=== PATIENT | male | born 1955 | race Caucasian/White ===

== ENCOUNTER 2017-07-27 20:03 | Inpatient (IN) ==
[2017-07-27 21:41] LABS: Basophils % 0.2 %; Eosinophils # 0.1 K/mcL (0.0-0.6); Eosinophils % 1.1 %; Hematocrit 35.8 % (37.5-50.1); Hemoglobin 12.5 g/dL (12.9-16.9); Immature Granulocytes % 0.8 % (0-4); Lymphocytes # 1.1 K/mcL (0.6-4.6); Lymphocytes % 20.2 %; Mean Corpuscular HGB Conc 34.9 g/dL (31.6-35.5); Mean Corpuscular Volume 100.3 fL (83.0-100.0); Mean Platelet Volume 11.1 fL (9.4-12.4); Monocytes # 0.4 K/mcL (0.0-1.3); Monocytes % 7.9 %; Neutrophils # 3.7 K/mcL (1.6-8.9); Red Blood Count 3.57 M/mcL (4.19-5.50); Red Cell Distribution Width 15.4 % (11.5-14.5); Segmented Neutrophils % 69.8 %
[2017-07-27 21:44] LABS: Platelet Count 98 K/mcL (140-400)
[2017-07-27 21:47] LABS: INR 2.1; Prothrombin Time 23.1 Seconds (9.4-12.1)
[2017-07-27 22:03] LABS: BUN/Creatinine Ratio 13 (6-26); Blood Urea Nitrogen 16 mg/dL (8-23); Carbon Dioxide 28 mEq/L (23-29); Chloride 102 mEq/L (98-107); Glucose 188 mg/dL (70-105); Osmolality,Calculated 290 (280-300); Potassium 4.1 mEq/L (3.5-5.1); Sodium 137 mEq/L (136-145); eGFR For African Americans > 60 (> 60); eGFR For Non-African Americans > 60 (> 60)
[2017-07-27 22:05] LABS: Troponin I < 0.03 ng/mL (< 0.04)
[2017-07-27] MEDS ORDERED: *HR* OxyCODONE/APAP 5/325 TABLET PO ONE (22:22)
--- NOTE | 2017-07-27 22:43 | Emergency Department Note ---
Disposition Clinical Impression: Bradycardia Fall Qualifiers: Encounter type: initial encounter Qualified Code(s): W19.XXXA - Unspecified fall, initial encounter Head trauma Qualifiers: Encounter type: initial encounter Qualified Code(s): S09.90XA - Unspecified injury of head, initial encounter Abrasion hip/leg Qualifiers: Encounter type: initial encounter Laterality: right Qualified Code(s): S80.811A - Abrasion, right lower leg, initial encounter Abrasion hand Qualifiers: Encounter type: initial encounter Laterality: right Qualified Code(s): S60.511A - Abrasion of right hand, initial encounter Traumatic hematoma of head Qualifiers: Encounter type: initial encounter Qualified Code(s): S00.93XA - Contusion of unspecified part of head, initial encounter Disposition: Admitted As Inpatient Condition: Fair Referrals: Mari Johnson MD [Primary Care Provider] - Time of Disposition: 22:20 Fall HPI - General Chief Complaint: ED Fall Stated Complaint: fall, head injury Time Seen by Provider: 07/27/17 20:07 Source: patient, EMS Mode of arrival: ambulatory Limitations: no limitations Nursing Notes Reviewed: Yes Vital Signs Reviewed: Yes - History of Present Illness HPI Narrative: 61-year-old male presents emergency Department after a fall at home. Patient states he was carrying groceries into the house when he tripped and fell to the ground striking the front left of his face. Patient states that he did not have lightheadedness or dizziness or near syncopal symptoms during the fall. He states he did not have loss of consciousness after the fall. EMS helped him to the stretcher and brought him to the hospital for further evaluation. Patient has an abrasion to the left side of his face, to his right hand and bilateral lower extremities. Patient is able to range of motion his right lower extremity without significant amount of pain. He does have tenderness to palpation of his right tibia and the right index finger. - Related Data Home Medications Medication Instructions Recorded Confirmed 5-Hydroxytryptophan (5-Htp) [5-Htp] 100 mg PO HS 10/20/15 10/20/15 Aripiprazole [Abilify] 5 mg PO DAILY 10/20/15 07/18/17 Ascorbate Calcium/Bioflavonoid 1 each PO DAILY 10/20/15 07/18/17 [Dianne-C 500 mg Tablet] Aspirin Enteric Coated [Aspirin EC] 81 mg PO DAILY 10/20/15 07/18/17 Atorvastatin Calcium [Lipitor] 20 mg PO DAILY 10/20/15 07/18/17 Cyclobenzaprine [Flexeril] 10 mg PO TID PRN 10/20/15 07/18/17 Doxazosin [Cardura] 8 - 12 mg PO HS 10/20/15 07/18/17 Duloxetine HCl [Cymbalta] 60 mg PO BID 10/20/15 07/18/17 Furosemide [Lasix] 40 mg PO DAILY 10/20/15 07/18/17 Lisinopril [Zestril] 20 mg PO BID 10/20/15 07/18/17 Metoprolol [Lopressor] 100 mg PO BID 10/20/15 07/18/17 Vitamin B Complex 1 each PO DAILY 10/20/15 07/18/17 Warfarin [Coumadin] 5 mg PO MOTUTHSA 10/20/15 07/18/17 Warfarin [Coumadin] 7.5 mg PO SUWEFR 10/20/15 07/18/17 hydroCHLOROthiazide 25 mg PO DAILY 10/20/15 07/18/17 [Hydrochlorothiazide] lamoTRIgine [Lamictal] 200 mg PO BID 10/20/15 07/18/17 Ibuprofen [Motrin Ib] 400 mg PO Q4H PRN 07/18/17 07/18/17 Insulin NPH/REG 70/30 [HumuLIN 50 unit SQ BIDWM 07/18/17 07/18/17 70/30 VIAL] Metformin HCl [Fortamet] 500 mg PO BID 07/18/17 07/18/17 Previous Rx's Medication Instructions Recorded Mag Hydrox/Al Hydrox/Simeth 15 ml PO Q6HR PRN #0 udc 10/26/15 [Maalox] Allergies Allergy/AdvReac Type Severity Reaction Status Date / Time Hydromorphone [From Dilaudid] AdvReac See Verified 07/27/17 22:33 Comments All systems ED: reviewed and negative except as stated. Review of Systems: As Per HPI Fall PMH - Past Medical History Medical history: Reports: atrial fibrillation, diabetes, hyperlipidemia, hypertension, peripheral artery disease, other Surgical history: Reports: appendectomy, arthroscopy (Knee arthroscopic procedure.), orthopedic, other (Plate and screw stabilization of cervical spine. History of laminectomy lumbar spine. Reduction internal fixation of fibula fracture.), other (Left heart catheterization 2004 benign.) Psychiatric history: Reports: no psych history - Social History Smoking Status: Never smoker Alcohol use: Reports: none Drug use: Reports: none Physical Exam General: Alert and in no acute distress Skin: Warm, dry, intact Head: Normocephalic and atraumatic Neck: Supple, trachea midline and no tenderness Cardiovascular: Bradycardia, no murmur, normal perfusion Respiratory: CTAB, no wheezing, cough, or respiratory distress Musculoskeletal: Normal strength, no tenderness, swelling or deformity GI: Soft, nontender, nondistended. Bowel sounds present Neuro: A&O to person, place, time and situation. No focal deficits noted on exam Psychiatric: cooperative and appropriate mood and affect. - General Limitations: no limitations General appearance: alert, in no apparent distress Course Vital Signs Temperature 97.8 F 07/27/17 20:05 Pulse Rate 47 07/27/17 20:05 Respiratory Rate 18 07/27/17 20:05 Blood Pressure 129/71 07/27/17 20:05 O2 Sat by Pulse Oximetry 96 07/27/17 20:05 Temperature 97.8 F 07/27/17 20:05 Pulse Rate 40 07/27/17 21:27 Respiratory Rate 16 07/27/17 21:27 Blood Pressure 139/80 07/27/17 21:27 O2 Sat by Pulse Oximetry 97 07/27/17 21:27 Oxygen Delivery Oxygen Delivery Room Air Fall - [facility] Narrative Medical decision making narrative: Patient had a heart rate that dropped to 31 during a repeat evaluation. He states his usual heart rate is in the low 40s and takes Lopressor 100 mg twice a day and doxazosin. Patient denies chest pain, shortness of breath but does state that he became lightheaded when transferring to the CT table and earlier this morning. He continues to deny shortness of breath or chest pain or near syncopal symptoms prior to the fall. CT of the head was negative for acute fracture or intracranial hemorrhage. Patient does take Coumadin for A. fib as well as factor V Leiden. He also has a history of thrombocytopenia which is being evaluated by Dr. Santiago per the family. INR and platelets are at baseline however after trauma patient is at risk for delayed bleeding. I explained the risks of delayed intracranial hemorrhage and the possible need for future emergent transfer to a hospital with neurosurgery as we do not have that capability. Patient wishes to stay at [facility] for serial examination and repeat head CT. He follows Dr. Doll for cardiology. - Medical Records Medical records reviewed: Yes I reviewed the patient's medical records. - Lab Data Lab results reviewed: Yes I reviewed the patient's lab results. Result diagrams: 07/27/17 21:30 07/27/17 21:30 Lab Results 07/27/17 07/27/17 07/27/17 Range/Units 21:30 21:30 21:30 WBC 5.3 (4.3-11.1) K/mcL RBC 3.57 L (4.19-5.50) M/mcL Hgb 12.5 L (12.9-16.9) g/dL Hct 35.8 L (37.5-50.1) % MCV 100.3 H (83.0-100.0) fL MCH 35.0 H (28.0-33.3) pg MCHC 34.9 (31.6-35.5) g/dL RDW 15.4 H (11.5-14.5) % Plt Count 98 L (140-400) K/mcL MPV 11.1 (9.4-12.4) fL Immature Gran % 0.8 (0-4) % Seg Neutrophils % 69.8 % Lymphocytes % 20.2 % Monocytes % 7.9 % Eosinophils % 1.1 % Basophils % 0.2 % Neutrophils # 3.7 (1.6-8.9) K/mcL Lymphocytes # 1.1 (0.6-4.6) K/mcL Monocytes # 0.4 (0.0-1.3) K/mcL Eosinophils # 0.1 (0.0-0.6) K/mcL Basophils # 0.0 (0.0-0.2) K/mcL PT 23.1 H (9.4-12.1) Seconds INR 2.1 Sodium 137 (136-145) mEq/L Potassium 4.1 (3.5-5.1) mEq/L Chloride 102 (98-107) mEq/L Carbon Dioxide 28 (23-29) mEq/L BUN 16 (8-23) mg/dL Creatinine 1.21 (0.70-1.30) mg/dL Est GFR ( Amer) > 60 (> 60) Est GFR (Non-Af Amer) > 60 (> 60) BUN/Creatinine Ratio 13 (6-26) Glucose 188 H (70-105) mg/dL Calculated Osmolality 290 (280-300) Calcium 9.0 (8.6-10.3) mg/dL Troponin I < 0.03 (< 0.04) ng/mL TSH (0.340-5.600) mcIU/mL 07/27/17 Range/Units 21:30 WBC (4.3-11.1) K/mcL RBC (4.19-5.50) M/mcL Hgb (12.9-16.9) g/dL Hct (37.5-50.1) % MCV (83.0-100.0) fL MCH (28.0-33.3) pg MCHC (31.6-35.5) g/dL RDW (11.5-14.5) % Plt Count (140-400) K/mcL MPV (9.4-12.4) fL Immature Gran % (0-4) % Seg Neutrophils % % Lymphocytes % % Monocytes % % Eosinophils % % Basophils % % Neutrophils # (1.6-8.9) K/mcL Lymphocytes # (0.6-4.6) K/mcL Monocytes # (0.0-1.3) K/mcL Eosinophils # (0.0-0.6) K/mcL Basophils # (0.0-0.2) K/mcL PT (9.4-12.1) Seconds INR Sodium (136-145) mEq/L Potassium (3.5-5.1) mEq/L Chloride (98-107) mEq/L Carbon Dioxide (23-29) mEq/L BUN (8-23) mg/dL Creatinine (0.70-1.30) mg/dL Est GFR ( Amer) (> 60) Est GFR (Non-Af Amer) (> 60) BUN/Creatinine Ratio (6-26) Glucose (70-105) mg/dL Calculated Osmolality (280-300) Calcium (8.6-10.3) mg/dL Troponin I (< 0.04) ng/mL TSH 7.167 H (0.340-5.600) mcIU/mL - Radiology Data Radiology results reviewed: Yes I reviewed the patient's radiology results. - EKG Data EKG attestation: Yes I reviewed and interpreted this EKG. EKG results narrative: Atrial fibrillation with a slow ventricular response of 42 without evidence of STEMI.
[2017-07-28] MEDS ORDERED: *HR* Phytonadione 5 MG TABLET PO STA (01:21)
[2017-07-28] MEDS ORDERED: *HR* Dextrose 50 % in Water (Syg) 50 ML SYRINGE IVP PRN (02:01)
[2017-07-28] MEDS ORDERED: D5% in Water 1,000 ML IVC PRN (02:01)
[2017-07-28] MEDS ORDERED: Dextrose Gel 15 GM/37.5 ML TUBE PO PRN ×2 (02:01)
[2017-07-28] MEDS ORDERED: Naloxone 0.4 MG/ML INJ IVP PRN (02:01)
--- NOTE | 2017-07-28 02:30 | Internal Med History&Physical ---
Date of Encounter: 07/28/17 Time of Encounter: 01:05 Internal Medicine - H&P: HPI Chief complaint: s/p fall; bradycardia Admitted From: Emergency Dept Plans for Post Hospital Care: Home History of present illness: Mr. Hernandez is a 61 year old male who presents to the ER tonight after having sustained a fall and contusion to his forehead earlier this evening. He describes tripping over his screen door and falling on concrete steps earlier this evening around 8 PM and suffering multiple contusions on his legs, arms, and his left forehead and above his left eye. Workup in the ER was negative on imaging, but he was noted to be bradycardic with a heart rate in the 30s and 40s. ER staff contacted me to admit patient, and I was reluctant to admit him because of the head contusion and anticoagulation with an INR of 2.1. I asked Dr. Raines to explain to family that we will did be doing serial neuro checks and repeat CT imaging to evaluate for the possibility of intracranial bleeding. If such is the case, he will need to be transferred emergently to a higher level of care as we have no neurosurgical backup at [place]. Dr. Raines explained this to the patient and family, and they prefer to stay here at [place]. Upon my assessment of the patient, patient has a significant hematoma along his left forehead and left eyelid. He also has multiple abrasions and contusions on his shins and arms with some mild bloody drainage. He denies any loss of consciousness or any syncope or near syncope with this fall. However, he did have bouts of dizziness and lightheadedness earlier in the day. He has history of atrial fibrillation, and, according to his , has been advised to pursue pacemaker placement per his caregiver services home. However, patient has refused to have that performed over the last year. 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 He remains on metoprolol for his atrial fibrillation, but he is quite bradycardic now with a heart rate in the 30s. His states he has been having problems with his heart rate running too fast and too slow over the last year, thus the recommendation for pacemaker. His fall, however, was not precipitated by lightheadedness or dizziness this evening despite having had these symptoms earlier in the day. Patient also has a history of factor V Leiden mutation, but he has never had a deep vein thrombosis or PE. He has had one superficial thrombus in his right arm several years ago. Given that he has never had a DVT or PE, I am going to give him some vitamin K in hopes of minimizing his risk of future bleeding during this hospital stay. Additionally, I asked his nurse to perform every 2 hour neuro checks, and we will repeat a head CT later this morning. I explained to patient and his that if there is any evidence of intracranial bleed, he will need to be transferred emergently to a higher level of care hospital with the neurosurgical backup. As such, there may be a delay in care. They both voiced understanding and a preference to stay here at [place]. Past Med Surg Social Fam HX - Past Medical History Attestation: Yes The following information was validated with the patient. Source: patient, old records reviewed Medical history: atrial fibrillation, diabetes, hyperlipidemia, hypertension, peripheral artery disease Psychiatric history: no psych history - Past Surgical History Surgical History: appendectomy, arthroscopy (Knee arthroscopic procedure.), orthopedic, other (Plate and screw stabilization of cervical spine. History of laminectomy lumbar spine. Reduction internal fixation of fibula fracture.), other (Left heart catheterization 2004 benign.) - Social History Smoking Status: Never smoker Smokeless Tobacco Status: No Alcohol use: none Drug use: none Current living situation: Home, With Family Activity Level: Independent ambulation Recent Out of Country Travel Within the Last 8 Weeks: No - Family History Mother Living Status: Hx Family Cardiac Disorders: Yes (HTN) Internal Medicine - H&P: Meds 5-Hydroxytryptophan (5-Htp) [5-Htp] 100 mg PO HS 10/20/15 [History] Aripiprazole [Abilify] 5 mg PO DAILY 10/20/15 [History] Ascorbate Calcium/Bioflavonoid [Dianne-C 500 mg Tablet] 1 each PO DAILY 10/20/15 [History] Aspirin Enteric Coated [Aspirin EC] 81 mg PO DAILY 10/20/15 [History] Atorvastatin Calcium [Lipitor] 20 mg PO DAILY 10/20/15 [History] Cyclobenzaprine [Flexeril] 10 mg PO TID PRN 10/20/15 [History] Doxazosin [Cardura] 8 - 12 mg PO HS 10/20/15 [History] Duloxetine HCl [Cymbalta] 60 mg PO BID 10/20/15 [History] Furosemide [Lasix] 40 mg PO DAILY 10/20/15 [History] Lisinopril [Zestril] 20 mg PO BID 10/20/15 [History] Metoprolol [Lopressor] 100 mg PO BID 10/20/15 [History] Vitamin B Complex 1 each PO DAILY 10/20/15 [History] Warfarin [Coumadin] 5 mg PO MOTUTHSA 10/20/15 [History] Warfarin [Coumadin] 7.5 mg PO SUWEFR 10/20/15 [History] hydroCHLOROthiazide [Hydrochlorothiazide] 25 mg PO DAILY 10/20/15 [History] lamoTRIgine [Lamictal] 200 mg PO BID 10/20/15 [History] Mag Hydrox/Al Hydrox/Simeth [Maalox] 15 ml PO Q6HR PRN #0 udc 10/26/15 [Rx] Ibuprofen [Motrin Ib] 400 mg PO Q4H PRN 07/18/17 [History] Insulin NPH/REG 70/30 [HumuLIN 70/30 VIAL] 50 unit SQ BIDWM 07/18/17 [History] Metformin HCl [Fortamet] 500 mg PO BID 07/18/17 [History] 3 Allergy/AdvReac Type Severity Reaction Status Date / Time Hydromorphone [From Dilaudid] AdvReac See Verified 07/27/17 22:33 Comments - Constitutional Constitutional: no chills, no fever(s), no night sweats - EENT Eyes: no blurry vision, no change in vision Ears: no ear pain, no tinnitus Nose, mouth and throat: no nasal congestion, no nasal discharge, no sinus pressure, no sore throat - Cardiovascular Cardiovascular ROS IM: irregular heart rhythm, lightheadedness, no chest pain, no dyspnea, no dyspnea on exertion, no edema, no palpitations, no paroxysmal nocturnal dyspnea, no syncope - Respiratory Respiratory: no cough, no dyspnea, no hemoptysis, no dyspnea on exertion, no wheezing, no chest congestion, no excessive phlegm production, no change in phlegm color - Gastrointestinal Gastrointestinal: no abdominal pain, no diarrhea, no hematemesis, no hematochezia, no melena, no nausea, no vomiting - Genitourinary Genitourinary ROS male: no dysuria, no flank pain, no hematuria - Musculoskeletal Musculoskeletal ROS IM: no arthralgias, no back pain - Integumentary Integumentary IM: no rash, no jaundice - Neurological Neurological ROS: dizziness, no abnormal speech, no behavioral changes, no convulsions, no focal weakness, no frequent falls, no headache(s), no weakness - Psychiatric Psychiatric: anxiety, no depression - Endocrine Endocrine IM: no polydipsia, no polyuria - Hematologic/Lymphatic Hematologic/Lymphatic: easy bruising, no lymphadenopathy - Allergic/Immunologic Allergic/Immunologic: no wheezing, no GI upset with certain foods - Constitutional Vitals: Temp Pulse Resp BP Pulse Ox 98.7 F 58 15 121/61 95 07/28/17 00:13 07/28/17 00:13 07/28/17 00:13 07/28/17 00:13 07/28/17 00:13 General appearance: Present: cooperative, mild distress, A&O X 3, pleasant, answers questions appropriately - Head Head exam: Absent: atraumatic Additional comments: prominent hematoma along left forehead and left eyelid -- dressed and wrapped - Expanded Head Exam Head exam expanded: Present: hematoma (left forehead). Absent: Wolf's sign, general tenderness, raccoon eyes - Eye Eye exam: Present: EOMI, normal appearance, PERRL. Absent: scleral icterus Pupils: Present: normal accommodation - ENT ENT exam: Present: mucous membranes dry, normal exam, normal oropharynx - Neck Neck exam general surgery: Present: full ROM, supple. Absent: tenderness, nuchal rigidity, thyromegaly - Respiratory Respiratory exam: Present: CTAB. Absent: chest wall tenderness, rales, respiratory distress, rhonchi, wheezes - Cardiovascular Cardiovascular exam: Present: bradycardia (HR 30's), distant heart sounds, irregular rhythm. Absent: diastolic murmur, JVD, systolic murmur - GI/Abdominal GI/Abdominal exam: Present: normal bowel sounds, soft. Absent: guarding, hepatomegaly, mass, rebound, splenomegaly, tenderness - Extremities Exam Extremities exam: Present: full ROM, normal capillary refill, warm, radial pulses palpable and symmetrical. Absent: calf tenderness, joint swelling, pedal edema - Back Exam Back exam: Present: normal inspection. Absent: CVA tenderness (L), CVA tenderness (R) - Neurological Exam Neurological exam: Present: alert, CN II-XII intact, oriented X3, no focal deficits, strengths equal and symetr throughout. Absent: motor sensory deficit , facial droop, speech deficit - Psychiatric Psychiatric exam: Present: normal affect, normal mood - Skin Skin exam: Present: abrasion (both legs/shins and both arms; forehead) Internal Med - H&P Results - Labs CBC & Chem 7: 07/27/17 21:30 07/27/17 21:30 - EKG Data -: EKG Interpreted by Myself - EKG Data Prior EKG available for review: no EKG comments: 07/28/17 02:47 slow atrial fibrillation with HR 30-40's - Diagnostic Studies CT scan - head Status: image reviewed by me (left ffrontal scalp contusion; no intracranial process) - VTE Reasons for not Prescribing Prophylaxis: Not indicated-Anticoagulated or INR therapeutic - Assessment and plan (1) Traumatic hematoma of head Current Visit: Yes Status: Acute Assessment and plan: 1. Serial neurochecks. 2. Repeat Head CT this morning to re-evaluate for possible intracranial bleed. 3. Long discussion with patient and on the risks of delayed care (transfer ) in the event of intracrainal bleed. I explained to them that we will perform neurochecks and Head CT as above. Additionally, I ordered Vitamin K to reverse Coumadin effect. 4. Patient and voiced understanding and preference to stay at [place]. 5. Wound bandaged and dressed in ER. Qualifiers: Encounter type: initial encounter Qualified Code(s): S00.93XA - Contusion of unspecified part of head, initial encounter (2) Bradycardia Current Visit: Yes Status: Acute Assessment and plan: 1. Stop Metoprolol. 2. Consult cardiology. 3. Monitor heart rhythm on telemetry. 4. BP preserved at this time; may need Dopamine if BP becomes unstable. 5. Patient likely needs pacemaker. (3) IDDM (insulin dependent diabetes mellitus) Current Visit: Yes Status: Chronic Assessment and plan: 1. Continue home basal insulin and SSI. 2. Stop Metformin. 3. Monitor glucose and adjust SSI accordingly. (4) Fall Current Visit: Yes Status: Acute Assessment and plan: 1. Patient will need PT/OT consults once stabilized. 2. Likely exacerbated by bradycardia/atrial fibrillation. 3. Bedrest ordered with bedside commode priveleges with 2 person assist. Qualifiers: Encounter type: initial encounter Qualified Code(s): W19.XXXA - Unspecified fall, initial encounter (5) DVT prophylaxis Current Visit: Yes Status: Acute Assessment and plan: 1. EPCD's. - Time Spent With Patient Total time spent is greater than 50% in coordination of care (as documented) at patient's floor/unit and/or counseling patient:
[2017-07-28 04:33] LABS: Basophils % 0.2 %; Eosinophils % 1.2 %
[2017-07-28 04:35] LABS: Eosinophils # 0.1 K/mcL (0.0-0.6); Hematocrit 34.5 % (37.5-50.1); Immature Granulocytes % 0.6 % (0-4); Immature Platelets 6.7 % (1.1-6.1); Lymphocytes # 1.5 K/mcL (0.6-4.6); Mean Corpuscular HGB Conc 34.8 g/dL (31.6-35.5); Mean Corpuscular Volume 100.6 fL (83.0-100.0); Mean Platelet Volume 11.6 fL (9.4-12.4); Monocytes # 0.4 K/mcL (0.0-1.3); Monocytes % 8.7 %; Nucleated Red Blood Cells 0.6 /100 WBC (0); Red Blood Count 3.43 M/mcL (4.19-5.50); Red Cell Distribution Width 15.3 % (11.5-14.5); Segmented Neutrophils % 60.3 %
[2017-07-28 04:38] LABS: Platelet Count 95 K/mcL (140-400)
[2017-07-28 04:44] LABS: INR 2.1; Prothrombin Time 23.3 Seconds (9.4-12.1)
[2017-07-28 05:00] LABS: Alanine Aminotransferase 13 Units/L (7-52); Albumin 3.5 g/dL (3.5-5.7); Albumin/Globulin Ratio 1.2 (1.1-2.2); Alkaline Phosphatase 82 Units/L (34-104); Aspartate Amino Transferase 20 Units/L (13-39); BUN/Creatinine Ratio 16 (6-26); Bilirubin,Total 0.4 mg/dL (0.3-1.0); Blood Urea Nitrogen 19 mg/dL (8-23); Calcium 8.9 mg/dL (8.6-10.3); Carbon Dioxide 28 mEq/L (23-29); Chloride 101 mEq/L (98-107); Chol/HDL Ratio 2.5 (0-4.9); Cholesterol 138 mg/dL (< 200); Glucose 155 mg/dL (70-105); HDL Cholesterol 55 mg/dL (40-59); LDL Cholesterol,Calculated 66 mg/dL (0-99); Magnesium 1.9 mg/dL (1.6-2.6); Osmolality,Calculated 285 (280-300); Potassium 4.1 mEq/L (3.5-5.1); Sodium 135 mEq/L (136-145); Total Protein 6.5 g/dL (6.4-8.9); Triglycerides 87 mg/dL (< 150); eGFR For African Americans > 60 (> 60); eGFR For Non-African Americans > 60 (> 60)
[2017-07-28 08:02] LABS: Estimated Average Glucose 189 mg/dl; Hemoglobin A1C 8.2 %
[2017-07-28] MEDS: Insulin LISPRO 300 UNITS/3 ML VIAL SQ SCH ×3 (08:31→17:22)
[2017-07-28] MEDS: lamoTRIgine 100 MG TABLET PO SCH ×2 (08:42→22:20)
[2017-07-28] MEDS: Acetaminophen 325 MG TABLET PO PRN ×2 (08:42→22:44)
[2017-07-28] MEDS: Vitamin B Complex/Vit C/Vit E 1 EACH TABLET PO SCH (08:42)
--- NOTE | 2017-07-28 09:33 | Cardiology Consult Note ---
Date of Encounter: 07/28/17 Time of Encounter: 09:33 Assessment and Plan (1) Sick sinus syndrome Current Visit: Yes Status: Acute Previously diagnosed with sick sinus syndrome and PPM was recommended in 2016. Pt opted to wait at that time. Holter monitor 11/23/2015: Average heart rate 59. Atrial fibrillation throughout the recording. Frequent pauses, longest 2.8 seconds occurred during nocturnal hours. Presented with mechanical fall, facial hematoma and contusions and found to have HR 30s-40s. 12 hr tele AVG HR 40, A-Fib, longest pause 4.1 seconds while awake, lowest HR 27. Recent TTE 06/2017 EF 60%. Pt on Lopressor 100mg BID at home. Allow washout. Will order PRN BB if he becomes tachycardic. Pt now agreeable to PPM. Make NPO after midnight tomorrow night and will plan for EP consult and possible PPM insertion on Sunday 07/30. (2) Atrial fibrillation with slow ventricular response Current Visit: Yes Status: Acute As above, diagnosed with sick sinus syndrome. Presented A-Fib slow ventricular response HR 30s-40s. On lopressor 100mg BID, will hold. Anticoagulated on Coumadin. INR was 2.1 on presentation and today. Coumadin currently on hold per primary team, presumably due to his fall and facial hematoma. Pt also has Factor V Leiden mutation. Head CTs have been negative for acute bleeding, but with progressive hematoma. Discussion w patient/family: The assessment and plan as outlined above was discussed with the patient and/or family members who expressed understanding and agreement. All questions were answered. Thank you for involving us in the care of your patient. Please call with any questions. I will discuss all the above with Dr. Diez and make changes as necessary. History of Present Illness Consult date: 07/28/17 Requesting physician: Cj Martínez Consult reason: sick sinus syndrome Chief complaint: fall History of present illness: Mr. Hernandez is a 61 year old male with PMH A-Fib on Coumadin, HTN, HLD, DMII, PAD , Factor V Leiden mutation that presented to ED after having sustained a fall and contusion to his forehead. Reports tripping over his screen door and falling on concrete steps suffering multiple contusions on his legs, arms, and his left forehead and above his left eye. Workup in the ER was negative on imaging. Significant hematoma along his left forehead and left eyelid. He also has multiple abrasions and contusions on his shins and arms. He denies syncope, but reports occasional dizziness/lightheadedness. HR was noted to be bradycardic with a heart rate in the 30s and 40s, A-Fib. Cardiology consulted for further recs. Reviewed prior records, saw Dr. Kaveh Doll in 2016, recommended PPM for SSS at that time, pt willing but never scheduled. HR at bedside currently high 30s, low 40s, on Lopressor 100mg BID at home. Prior CV testing: TTE 06/20/17: LVEF 60%. Definity echo contrast was used. RV is dilated. Function is normal. Mild mitral regurgitation. Mild pulmonary hypertension.The IVC is dilated. Holter monitor 11/23/2015: Average heart rate 59. Atrial fibrillation throughout the recording. Frequent pauses, longest 2.8 seconds occurred during nocturnal hours. Past Med Surg Social Fam HX - Past Medical History Medical history: atrial fibrillation, diabetes, hyperlipidemia, hypertension, peripheral artery disease Psychiatric history: no psych history - Past Surgical History Surgical History: appendectomy, arthroscopy, orthopedic, other, other - Social History Smoking Status: Never smoker Smokeless Tobacco Status: No Alcohol use: none Drug use: none - Family History Mother Living Status: Age at : 82 Cause of : CHF Hx Family Cardiac Disorders: Yes (HTN, CHF) Hx Family Endocrine Disorder: Yes (DM) Medications and Allergies 5-Hydroxytryptophan (5-Htp) [5-Htp] 100 mg PO HS 10/20/15 [History] Aripiprazole [Abilify] 5 mg PO DAILY 10/20/15 [History] Ascorbate Calcium/Bioflavonoid [Dianne-C 500 mg Tablet] 1 each PO DAILY 10/20/15 [History] Aspirin Enteric Coated [Aspirin EC] 81 mg PO DAILY 10/20/15 [History] Atorvastatin Calcium [Lipitor] 20 mg PO DAILY 10/20/15 [History] Cyclobenzaprine [Flexeril] 10 mg PO TID PRN 10/20/15 [History] Doxazosin [Cardura] 8 - 12 mg PO HS 10/20/15 [History] Duloxetine HCl [Cymbalta] 60 mg PO BID 10/20/15 [History] Furosemide [Lasix] 40 mg PO DAILY 10/20/15 [History] Lisinopril [Zestril] 20 mg PO BID 10/20/15 [History] Metoprolol [Lopressor] 100 mg PO BID 10/20/15 [History] Vitamin B Complex 1 each PO DAILY 10/20/15 [History] Warfarin [Coumadin] 5 mg PO MOTUTHSA 10/20/15 [History] Warfarin [Coumadin] 7.5 mg PO SUWEFR 10/20/15 [History] hydroCHLOROthiazide [Hydrochlorothiazide] 25 mg PO DAILY 10/20/15 [History] lamoTRIgine [Lamictal] 200 mg PO BID 10/20/15 [History] Mag Hydrox/Al Hydrox/Simeth [Maalox] 15 ml PO Q6HR PRN #0 udc 10/26/15 [Rx] Ibuprofen [Motrin Ib] 400 mg PO Q4H PRN 07/18/17 [History] Insulin NPH/REG 70/30 [HumuLIN 70/30 VIAL] 50 unit SQ BIDWM 07/18/17 [History] Metformin HCl [Fortamet] 500 mg PO BID 07/18/17 [History] 3 Allergy/AdvReac Type Severity Reaction Status Date / Time Hydromorphone [From Dilaudid] AdvReac See Verified 07/27/17 22:33 Comments All Systems Review: The remainder of the systems were reviewed and are negative - Cardiovascular Cardiovascular: as per HPI, lightheadedness, slow heart rate Physical Examination Vital Signs, Last 4 Hours Temp Pulse Resp BP Pulse Ox 07/28/17 07:38 97.5 F L 45 16 117/79 97 Vital Signs Temp Pulse Resp BP Pulse Ox 07/28/17 07:38 97.5 F L 45 16 117/79 97 07/28/17 04:23 41 13 131/94 93 07/28/17 02:43 16 98 07/28/17 00:13 98.7 F 58 15 121/61 95 07/27/17 23:48 41 17 116/74 96 07/27/17 22:51 40 16 117/67 97 07/27/17 21:27 40 16 139/80 97 07/27/17 20:05 97.8 F 47 18 129/71 96 Intake and Output 07/27/17 07/28/17 07/28/17 23:59 07:59 15:59 Intake Total 480 / 480 Output Total 0 / 0 Balance 0 / 0 480 / 480 Intake: Oral 480 / 480 Output: Urine 0 / 0 Other: Meal Breakfast Percent of Meal Consumed 100% Weight 169.19 kg 169.1 kg Blood Glucose* 106 Patient Weight 07/28/17 23:59 Weight 169.1 kg General: Conversant, No Apparent Distress HEENT: Other (hematoma left forehead and eyelid, contusions) Neck: No JVD, Normal carotid pulses Cardiac: Other (irregularly irregular) Lungs: Normal Breath Sounds, No Wheeze, Rales, Rhonchi Neuro: Alert and responsive, No focal deficits noted Abdomen: Soft, Non-Tender Skin: No rashes noted on visualized skin Musculoskeletal: No Chest Wall Tenderness Extremities: Other (mild LE edema) Results 07/28/17 03:54 07/28/17 03:54 Lab Results 07/28/17 07/28/17 07/28/17 03:54 03:54 03:54 WBC 5.0 Hgb 12.0 L Hct 34.5 L Plt Count 95 L INR 2.1 APTT 36.0 Sodium Potassium Chloride Carbon Dioxide BUN Creatinine Glucose Calcium Magnesium Total Bilirubin AST ALT Alkaline Phosphatase Troponin I < 0.03 07/28/17 03:54 WBC Hgb Hct Plt Count INR APTT Sodium 135 L Potassium 4.1 Chloride 101 Carbon Dioxide 28 BUN 19 Creatinine 1.18 Glucose 155 H Calcium 8.9 Magnesium 1.9 Total Bilirubin 0.4 AST 20 ALT 13 Alkaline Phosphatase 82 Troponin I Short CBC 07/28/17 07/27/17 Range/Units 03:54 21:30 WBC 5.0 5.3 (4.3-11.1) K/mcL Hgb 12.0 L 12.5 L (12.9-16.9) g/dL Hct 34.5 L 35.8 L (37.5-50.1) % Plt Count 95 L 98 L (140-400) K/mcL Neutrophils # 3.0 3.7 (1.6-8.9) K/mcL BMP 07/28/17 07/27/17 Range/Units 03:54 21:30 Sodium 135 L 137 (136-145) mEq/L Potassium 4.1 4.1 (3.5-5.1) mEq/L Chloride 101 102 (98-107) mEq/L Carbon Dioxide 28 28 (23-29) mEq/L BUN 19 16 (8-23) mg/dL Creatinine 1.18 1.21 (0.70-1.30) mg/dL Glucose 155 H 188 H (70-105) mg/dL Calcium 8.9 9.0 (8.6-10.3) mg/dL Cardiac Enzymes 07/28/17 07/27/17 Range/Units 03:54 21:30 Troponin I < 0.03 < 0.03 (< 0.04) ng/mL Liver Function 07/28/17 Range/Units 03:54 Total Bilirubin 0.4 (0.3-1.0) mg/dL AST 20 (13-39) Units/L ALT 13 (7-52) Units/L Alkaline Phosphatase 82 (34-104) Units/L Albumin 3.5 (3.5-5.7) g/dL Impressions Cervical Spine CT 07/27/17 20:39 IMPRESSION: No acute abnormality of the cervical spine. Fixation hardware appears intact. D/ / 07/27/2017 21:54:35 Stanley Saldivar MD / [facility] Interpreting Provider: Stanley Saldivar MD Face CT 07/27/17 20:39 IMPRESSION: No acute traumatic injury of facial bones. Left periorbital and frontal soft tissue contusion. D/ / Uziel Tan MD / Uziel Tan MD Interpreting Provider: Uziel Tan MD Finger X-Ray 07/27/17 20:39 IMPRESSION: No acute osseous abnormality of the right index finger. D/ / Dax Pulido / Dax Pulido Interpreting Provider: Dax Pulido Head CT 07/27/17 20:39 IMPRESSION: No acute intracranial abnormality. Soft tissue contusion/ hematoma of the left frontal scalp and left periorbital soft tissues. D/ / Zeus Cunningham MD / Zeus Cunningham MD Interpreting Provider: Zeus Cunningham MD Tibia/Fibula X-Ray 07/27/17 20:39 IMPRESSION: No acute osseous abnormality. D/ / Neftali Nolen MD / Neftali Nolen MD Interpreting Provider: Neftali Nolen MD Chest X-Ray 07/27/17 21:27 IMPRESSION: 1. No acute cardiopulmonary abnormality. 2. Mild cardiomegaly. D/ / Dax Pulido / Dax Pulido Interpreting Provider: Dax Pulido Head CT 07/28/17 04:30 IMPRESSION: No acute intracranial abnormality. Progressive left frontal scalp hematoma. D/ / Haim Hanna MD / Haim Hanna MD Interpreting Provider: Haim Hanna MD Active Medications Acetaminophen (Tylenol) 650 mg PO Q6H PRN PRN Reason: Mild Pain/Fever Stop: 01/27/18 02:02 Last Admin: 07/28/17 08:42 Dose: 650 mg Al Hydrox/Mg Hydrox/Simethicone (Maalox) 15 ml PO Q6HR PRN; Protocol PRN Reason: Dyspepsia Stop: 01/27/18 02:11 Atorvastatin Calcium (Lipitor) 20 mg PO DAILY TRINITY Stop: 01/27/18 09:01 Last Admin: 07/28/17 08:41 Dose: 20 mg Dextrose/Water (Dextrose 50% (Syg)) 25 ml IVP AD PRN PRN Reason: Hypoglycemia Stop: 01/27/18 02:02 Glucagon (Glucagen) 1 mg IM ONCE PRN PRN Reason: Hypoglycemia Stop: 01/27/18 02:02 Glucose (Gluctose) 15 gm PO ONCE PRN PRN Reason: Hypoglycemia Stop: 01/27/18 02:02 Glucose (Gluctose) 30 gm PO ONCE PRN PRN Reason: Hypoglycemia Stop: 01/27/18 02:02 Dextrose (Dextrose 5%) 1,000 mls @ 100 mls/hr IVC .Q10H PRN PRN Reason: HYPOGLYCEMIA Stop: 01/27/18 02:02 Insulin Human Lispro (Humalog) 0 units SQ TIDAC TRINITY PRN Reason: Protocol Stop: 01/27/18 07:31 Last Admin: 07/28/17 08:31 Dose: Not Given Lamotrigine (Lamictal) 200 mg PO BID TRINITY Stop: 01/27/18 09:01 Last Admin: 07/28/17 08:42 Dose: 200 mg Naloxone HCl (Narcan) 0.4 mg IVP Q2MIN PRN PRN Reason: SEE COMMENTS Stop: 01/27/18 02:02 Non-Formulary Medication (Insulin Nph/Reg 70/30) 50 unit SQ BIDWM TRINITY Stop: 01/27/18 08:01 Vitamin B Complex/Vit C/Vit E (Stresstab) 1 each PO DAILY TRINITY Stop: 01/27/18 09:01 Last Admin: 07/28/17 08:42 Dose: 1 each - Imaging and Cardiology Echo: report reviewed Holter: report reviewed - EKG Interpretation EKG results cardiology: personally reviewed (A-Fib, slow ventricular response HR 42), other (12 hr tele AVG HR 40, A-Fib. Longest pause 4.1 seconds. Lowest HR 27.) Consult Discharge Plan - Plan Referrals: Mari Johnson MD [Primary Care Provider] -
[2017-07-28 10:06] LABS: Basophils % 0.2 %; Immature Granulocytes % 0.4 % (0-4); Red Cell Distribution Width 15.4 % (11.5-14.5)
[2017-07-28 10:07] LABS: Hematocrit 34.7 % (37.5-50.1); Hemoglobin 12.2 g/dL (12.9-16.9); Immature Platelets 5.8 % (1.1-6.1); Lymphocytes % 29.5 %; Mean Corpuscular HGB Conc 35.2 g/dL (31.6-35.5); Mean Corpuscular Hemoglobin 35.4 pg (28.0-33.3); Mean Corpuscular Volume 100.6 fL (83.0-100.0); Mean Platelet Volume 10.6 fL (9.4-12.4); Red Blood Count 3.45 M/mcL (4.19-5.50); Segmented Neutrophils % 58.2 %
[2017-07-28 10:08] LABS: Eosinophils # 0.1 K/mcL (0.0-0.6); Eosinophils % 1.4 %; Lymphocytes # 1.5 K/mcL (0.6-4.6); Monocytes # 0.5 K/mcL (0.0-1.3); Monocytes % 10.3 %; Neutrophils # 2.9 K/mcL (1.6-8.9); Platelet Count 95 K/mcL (140-400)
[2017-07-28] MEDS ORDERED: 0.9 % Sodium Chloride 250 ML ONE (11:02)
[2017-07-28] MEDS: Mag Hydrox/Al Hydrox/Simeth 30 ML UDC PO PRN (12:06)
--- NOTE | 2017-07-28 12:09 | Internal Med Progress Note ---
<Genaro Levy - Last Filed: 07/28/17 13:07> Date of Encounter: 07/28/17 Time of Encounter: 12:00 - Assessment and plan (1) Fall Current Visit: Yes Status: Acute Assessment and plan: Likely exacerbated by bradycardia/atrial fibrillation Significant hematoma over left eye Initial head CT and repeat head CT are negative for intracranial bleed but do show progression of hematoma No bony abnormalities observed Patient anticoagulated with Coumadin prior to fall, likely contributory to hematoma Reverse INR with vitamin K and FFP Bedrest ordered with bedside commode priveleges with 2 person assist Patient will need PT/OT consults once stabilized Serial neurochecks, if worsening mental status observed, obtain head CT If intracranial hemorrhage seen will need immediate transfer Qualifiers: Encounter type: initial encounter Qualified Code(s): W19.XXXA - Unspecified fall, initial encounter (2) Traumatic hematoma of head Current Visit: Yes Status: Acute Assessment and plan: Plan as above Qualifiers: Encounter type: initial encounter Qualified Code(s): S00.93XA - Contusion of unspecified part of head, initial encounter (3) IDDM (insulin dependent diabetes mellitus) Current Visit: Yes Status: Chronic Assessment and plan: Blood sugars controlled Continue home basal insulin and SSI Stop Metformin Monitor glucose and adjust SSI accordingly (4) DVT prophylaxis Current Visit: Yes Status: Acute Assessment and plan: EPCD's. (5) Sick sinus syndrome Current Visit: Yes Status: Acute Assessment and plan: Patient has history of bradycardia. He was previously evaluated by cardiology and a pacemaker was recommended in 2016 for sick sinus syndrome (which he declined at that time) Bradycardia with pause are likely etiology of his fall Stop Metoprolol Consult cardiology: plan for pacemaker placement on Sunday Monitor heart rhythm on telemetry - Time Spent With Patient Total time spent is greater than 50% in coordination of care (as documented) at patient's floor/unit and/or counseling patient: - Subjective Interval history: Patient reports doing well. He denies having any significant changes in mental status, his is at bedside and agrees. His states that there has been a slight increase in the puffiness around his eye, but not significantly so. He reports having a mild headache, but is not concerned by it. He denies having any feelings of palpitations, chest pain, shortness of breath, or nausea. - Constitutional Vitals: Temp Pulse Resp BP Pulse Ox 97.8 F 50 16 145/69 93 07/28/17 11:51 07/28/17 11:51 07/28/17 11:51 07/28/17 11:51 07/28/17 11:51 General appearance: Present: cooperative, A&O X 3, pleasant, no acute distress, answers questions appropriately Exam: General: Cooperative, pleasant, no acute distress, alert and oriented 3, answers questions appropriately HEENT: Normocephalic, bandage in place over left eye, left eye swollen closed, hematoma on left forehead and under left eye, mild tenderness in muscles in posterior cervical region, neck supple, trachea midline, oral mucosa moist, no orophargeal erythema or exudates Respiratory: No accessory muscle usage, clear to auscultation bilaterally, no wheezes/rhonchi/rales appreciated Cardiovascular: Regular rate and rhythm, S1 and S2 present, no murmurs/rubs/ gallops/clicks appreciated GI/abdominal: Nondistended, nontender, soft, normal bowel sounds, no peritoneal signs Extremities: No calf tenderness, abrasions on right and left lower extremities, abrasions on left UE, 1-2+ pedal edema appreciated, warm, lower extremity pulses palpable and symmetrical Neurological: Alert and oriented 3, no facial droop, no focal deficits Skin: Dry, intact, normal color Internal Medicine: Result - Labs CBC & Chem 7: 07/28/17 09:56 07/28/17 03:54 Labs: Short CBC 07/28/17 07/28/17 Range/Units 03:54 09:56 WBC 5.0 4.9 (4.3-11.1) K/mcL Hgb 12.0 L 12.2 L (12.9-16.9) g/dL Hct 34.5 L 34.7 L (37.5-50.1) % Plt Count 95 L 95 L (140-400) K/mcL Neutrophils # 3.0 2.9 (1.6-8.9) K/mcL BMP 07/28/17 03:54 Sodium 135 L Potassium 4.1 Chloride 101 Carbon Dioxide 28 BUN 19 Creatinine 1.18 Glucose 155 H Calcium 8.9 Cardiac Enzymes 07/28/17 07/28/17 Range/Units 03:54 09:56 Troponin I < 0.03 < 0.03 (< 0.04) ng/mL Liver Function 07/28/17 Range/Units 03:54 Total Bilirubin 0.4 (0.3-1.0) mg/dL AST 20 (13-39) Units/L ALT 13 (7-52) Units/L Alkaline Phosphatase 82 (34-104) Units/L Albumin 3.5 (3.5-5.7) g/dL - ABG Interpretation ABG results: PT/INR, D-dimer PT 23.3 Seconds (9.4-12.1) H 07/28/17 03:54 - Impressions Impressions Head CT 07/28/17 04:30 IMPRESSION: No acute intracranial abnormality. Progressive left frontal scalp hematoma. D/ / Haim Hanna MD / Haim Hanna MD Interpreting Provider: Haim Hanna MD - VTE Reasons for not Prescribing Prophylaxis: Not indicated-Anticoagulated or INR therapeutic Consult Discharge Plan - Plan Referrals: Mari Johnson MD [Primary Care Provider] - <Gerry Claire T - Last Filed: 07/28/17 14:10> Date of Encounter: 07/28/17 - Assessment and plan (1) Fall Current Visit: Yes Status: Acute Qualifiers: Encounter type: initial encounter Qualified Code(s): W19.XXXA - Unspecified fall, initial encounter (2) Traumatic hematoma of head Current Visit: Yes Status: Acute Qualifiers: Encounter type: initial encounter Qualified Code(s): S00.93XA - Contusion of unspecified part of head, initial encounter (3) IDDM (insulin dependent diabetes mellitus) Current Visit: Yes Status: Chronic (4) DVT prophylaxis Current Visit: Yes Status: Acute (5) Sick sinus syndrome Current Visit: Yes Status: Acute - Time Spent With Patient Total time spent is greater than 50% in coordination of care (as documented) at patient's floor/unit and/or counseling patient: - Constitutional Vitals: Temp Pulse Resp BP Pulse Ox 97.6 F 45 16 167/73 96 07/28/17 13:52 07/28/17 13:52 07/28/17 13:52 07/28/17 13:52 07/28/17 13:52 Internal Medicine: Result - Labs CBC & Chem 7: 07/28/17 09:56 07/28/17 03:54 Labs: Short CBC 07/28/17 07/28/17 Range/Units 03:54 09:56 WBC 5.0 4.9 (4.3-11.1) K/mcL Hgb 12.0 L 12.2 L (12.9-16.9) g/dL Hct 34.5 L 34.7 L (37.5-50.1) % Plt Count 95 L 95 L (140-400) K/mcL Neutrophils # 3.0 2.9 (1.6-8.9) K/mcL BMP 07/28/17 03:54 Sodium 135 L Potassium 4.1 Chloride 101 Carbon Dioxide 28 BUN 19 Creatinine 1.18 Glucose 155 H Calcium 8.9 Cardiac Enzymes 07/28/17 07/28/17 Range/Units 03:54 09:56 Troponin I < 0.03 < 0.03 (< 0.04) ng/mL Liver Function 07/28/17 Range/Units 03:54 Total Bilirubin 0.4 (0.3-1.0) mg/dL AST 20 (13-39) Units/L ALT 13 (7-52) Units/L Alkaline Phosphatase 82 (34-104) Units/L Albumin 3.5 (3.5-5.7) g/dL - ABG Interpretation ABG results: PT/INR, D-dimer PT 23.3 Seconds (9.4-12.1) H 07/28/17 03:54 - Impressions Impressions Head CT 07/28/17 04:30 IMPRESSION: No acute intracranial abnormality. Progressive left frontal scalp hematoma. D/ / Haim Hanna MD / Haim Hanna MD Interpreting Provider: Haim Hanna MD - Attending Attestation I examined this patient and my medical decision-making was reviewed with the Resident Physician on 07/28/17. I agree with the documented findings, disposition and treatment plan as described except to the extent set forth below. No globe rupure, cornea is white. Fall with expanding scalp hematoma by CT. Bradycardic, Cardio is following. Factor V leiden. INR is therapeutic. Reverse INR for now, monitor HB q6h. Onc eval due to recurrent falls while on Coumadin. PTOT eval. Hold BB, continue other home meds.
[2017-07-28 15:50] LABS: Basophils % 0.2 %; Hemoglobin 11.9 g/dL (12.9-16.9)
[2017-07-28 15:52] LABS: Eosinophils # 0.1 K/mcL (0.0-0.6); Eosinophils % 1.4 %; Hematocrit 34.1 % (37.5-50.1); Immature Granulocytes % 0.2 % (0-4); Immature Platelets 5.9 % (1.1-6.1); Lymphocytes # 1.3 K/mcL (0.6-4.6); Lymphocytes % 31.6 %; Mean Corpuscular HGB Conc 34.9 g/dL (31.6-35.5); Mean Corpuscular Hemoglobin 34.9 pg (28.0-33.3); Mean Platelet Volume 10.7 fL (9.4-12.4); Monocytes # 0.4 K/mcL (0.0-1.3); Monocytes % 9.1 %; Neutrophils # 2.4 K/mcL (1.6-8.9); Red Blood Count 3.41 M/mcL (4.19-5.50); Red Cell Distribution Width 15.1 % (11.5-14.5); Segmented Neutrophils % 57.5 %
[2017-07-28 15:56] LABS: Platelet Count 91 K/mcL (140-400)
[2017-07-28 21:18] LABS: Basophils % 0.2 %; Eosinophils # 0.1 K/mcL (0.0-0.6); Eosinophils % 1.4 %; Hematocrit 35.8 % (37.5-50.1); Hemoglobin 12.5 g/dL (12.9-16.9); Immature Granulocytes % 0.5 % (0-4); Lymphocytes # 1.4 K/mcL (0.6-4.6); Lymphocytes % 33.3 %; Mean Corpuscular HGB Conc 34.9 g/dL (31.6-35.5); Mean Corpuscular Hemoglobin 34.8 pg (28.0-33.3); Mean Corpuscular Volume 99.7 fL (83.0-100.0); Mean Platelet Volume 10.5 fL (9.4-12.4); Monocytes # 0.4 K/mcL (0.0-1.3); Monocytes % 10.4 %; Neutrophils # 2.3 K/mcL (1.6-8.9); Red Blood Count 3.59 M/mcL (4.19-5.50); Red Cell Distribution Width 15.3 % (11.5-14.5); Segmented Neutrophils % 54.2 %
[2017-07-28 21:20] LABS: Platelet Count 90 K/mcL (140-400)
[2017-07-28 21:24] LABS: INR 1.7; Prothrombin Time 18.3 Seconds (9.4-12.1)
[2017-07-28] MEDS: Insulin NPH/REG 70/30 300 UNIT/3 ML VIAL SQ SCH ×2 (22:21→22:47)
[2017-07-29 04:05] LABS: Basophils % 0.2 %; Immature Granulocytes % 0.2 % (0-4)
[2017-07-29 04:11] LABS: Eosinophils # 0.1 K/mcL (0.0-0.6); Hematocrit 36.9 % (37.5-50.1); Hemoglobin 12.5 g/dL (12.9-16.9); INR 1.6; Immature Platelets 6.2 % (1.1-6.1); Lymphocytes # 1.6 K/mcL (0.6-4.6); Lymphocytes % 36.7 %; Mean Corpuscular HGB Conc 33.9 g/dL (31.6-35.5); Mean Corpuscular Volume 100.3 fL (83.0-100.0); Mean Platelet Volume 11.1 fL (9.4-12.4); Monocytes # 0.4 K/mcL (0.0-1.3); Neutrophils # 2.2 K/mcL (1.6-8.9); Platelet Count 100 K/mcL (140-400); Prothrombin Time 17.4 Seconds (9.4-12.1); Red Blood Count 3.68 M/mcL (4.19-5.50); Red Cell Distribution Width 15.2 % (11.5-14.5); Segmented Neutrophils % 50.9 %
[2017-07-29 05:07] LABS: BUN/Creatinine Ratio 14 (6-26); Blood Urea Nitrogen 14 mg/dL (8-23); Calcium 9.2 mg/dL (8.6-10.3); Carbon Dioxide 31 mEq/L (23-29); Chloride 103 mEq/L (98-107); Glucose 126 mg/dL (70-105); Osmolality,Calculated 288 (280-300); Potassium 3.9 mEq/L (3.5-5.1); Sodium 138 mEq/L (136-145); eGFR For African Americans > 60 (> 60); eGFR For Non-African Americans > 60 (> 60)
[2017-07-29] MEDS: Insulin LISPRO 300 UNITS/3 ML VIAL SQ SCH ×3 (07:35→17:25)
[2017-07-29] MEDS ORDERED: *HR* Heparin 5,000 UNIT/ML VIAL IVP ONE (08:47)
[2017-07-29] MEDS ORDERED: *HR* Heparin 5,000 UNIT/ML VIAL IVP PRN ×2 (08:47)
[2017-07-29] MEDS ORDERED: Heparin 25,000 UNIT/500 ML D5W 25,000 UNIT/500 ML BAG IVC SCH (09:00)
[2017-07-29] MEDS: Acetaminophen 325 MG TABLET PO PRN ×2 (09:24→21:49)
[2017-07-29] MEDS: Vitamin B Complex/Vit C/Vit E 1 EACH TABLET PO SCH (09:24)
[2017-07-29] MEDS: lamoTRIgine 100 MG TABLET PO SCH ×2 (09:24→21:51)
--- NOTE | 2017-07-29 10:20 | Cardiology Progress Note ---
Date of Encounter: 07/29/17 Time of Encounter: 10:20 Assessment and Plan (1) Tachy-elliot syndrome Current Visit: Yes Status: Acute EP consult tomorrow, plan on PPM in morning Pt not to eat after midnight. (2) Chronic anticoagulation Current Visit: No Status: Chronic Continue INR 2-3 for atrial fibrillation (3) Fall Current Visit: Yes Status: Acute Likely 2/2 tachybrady syndrome Qualifiers: Encounter type: initial encounter Qualified Code(s): W19.XXXA - Unspecified fall, initial encounter Discussion w patient/family: The assessment and plan as outlined above was discussed with the patient and/or family members who expressed understanding and agreement. All questions were answered. Thank you for involving us in the care of your patient. Please call with any questions. Subjective Principal diagnosis: chest pain Interval history: He had dressing on head reinforced today, otherwise no symptoms. No chest pain or palpitations. Objective Vital Signs, Last 4 Hours Temp Pulse Resp BP Pulse Ox 07/29/17 07:39 96 07/29/17 06:59 98.3 F 65 16 148/86 96 General: Conversant HEENT: Other (left frontal ecchymosis) Neck: No JVD Cardiac: Other (irr irr) Lungs: Normal Breath Sounds Neuro: Alert and responsive Abdomen: Soft Skin: No rashes noted on visualized skin Musculoskeletal: No Chest Wall Tenderness Extremities: Other (trace edema) Results 07/29/17 03:27 07/29/17 03:27 Lab Results 07/28/17 07/28/17 07/28/17 09:56 15:39 21:06 WBC 4.2 L 4.2 L Hgb 11.9 L 12.5 L Hct 34.1 L 35.8 L Plt Count 91 L 90 L INR Sodium Potassium Chloride Carbon Dioxide BUN Creatinine Glucose Calcium Troponin I < 0.03 07/28/17 07/29/17 07/29/17 21:06 03:27 03:27 WBC 4.4 Hgb 12.5 L Hct 36.9 L Plt Count 100 L INR 1.7 1.6 Sodium Potassium Chloride Carbon Dioxide BUN Creatinine Glucose Calcium Troponin I 07/29/17 03:27 WBC Hgb Hct Plt Count INR Sodium 138 Potassium 3.9 Chloride 103 Carbon Dioxide 31 H BUN 14 Creatinine 0.98 Glucose 126 H Calcium 9.2 Troponin I - VTE Reasons for not Prescribing Prophylaxis: Not indicated-Anticoagulated or INR therapeutic Documentation of Mechanical Device: Intermittent pneumatic compression device Consult Discharge Plan - Plan Referrals: Mari Johnson MD [Primary Care Provider] -
--- NOTE | 2017-07-29 10:30 | Internal Med Progress Note ---
<Genaro Levy - Last Filed: 07/29/17 10:47> Date of Encounter: 07/29/17 Time of Encounter: 10:00 - Assessment and plan (1) Sick sinus syndrome Current Visit: Yes Status: Acute Assessment and plan: Patient has history of bradycardia and SSS He was previously evaluated by cardiology and a pacemaker was recommended in 2016 for sick sinus syndrome (which he declined at that time) Bradycardia with pause are likely etiology of his fall Stop Metoprolol Consult cardiology: plan for pacemaker placement on Sunday Monitor heart rhythm on telemetry (2) Fall Current Visit: Yes Status: Acute Assessment and plan: Likely exacerbated by bradycardia/atrial fibrillation Significant hematoma over left eye Initial head CT and repeat head CT are negative for intracranial bleed but do show progression of hematoma No bony abnormalities observed Patient anticoagulated with Coumadin prior to fall, likely contributory to hematoma Reversed INR with vitamin K and FFP yesterday Patient will need PT/OT consults once stabilized Continue to monitor neuro status Qualifiers: Encounter type: initial encounter Qualified Code(s): W19.XXXA - Unspecified fall, initial encounter (3) Traumatic hematoma of head Current Visit: Yes Status: Acute Assessment and plan: Plan as above Qualifiers: Encounter type: initial encounter Qualified Code(s): S00.93XA - Contusion of unspecified part of head, initial encounter (4) IDDM (insulin dependent diabetes mellitus) Current Visit: Yes Status: Chronic Assessment and plan: Blood sugars controlled Patient takes insulin 70/30 units twice a day at home We will hold patient's home insulin Continue home basal insulin and SSI We will add 10 units of Levemir twice a day Stop Metformin Monitor glucose and adjust SSI accordingly (5) DVT prophylaxis Current Visit: Yes Status: Acute Assessment and plan: EPCD's Patient previously anticoagulated for atrial fibrillation, this was reversed due to progressive nature of patient hematoma Possible reinstitution of anticoagulation considered (6) Atrial fibrillation Current Visit: Yes Status: Acute Assessment and plan: History of atrial fibrillation On Coumadin with therapeutic INR at presentation Worsening hematoma seen in serial CT scans Coumadin reversed with vitamin K and fresh frozen plasma Hemoglobin has remained stable Both the start anticoagulation with heparin drip We will give dose of Coumadin today, likely INR will not go in tomorrow given previous administration of vitamin K and FFP Qualifiers: Atrial fibrillation type: unspecified Qualified Code(s): I48.91 - Unspecified atrial fibrillation - Time Spent With Patient Total time spent is greater than 50% in coordination of care (as documented) at patient's floor/unit and/or counseling patient: - Subjective Interval history: Patient reports he is doing well this morning. He denies any significant changes in his mental state or any episodes of confusion. He denies any increasing swelling, though he admits he cannot see his forehead. He denies any headache or changes in his vision. Denies chest pain or shortness of breath. - Constitutional Vitals: Temp Pulse Resp BP Pulse Ox 98.3 F 65 16 148/86 96 07/29/17 06:59 07/29/17 06:59 07/29/17 06:59 07/29/17 06:59 07/29/17 07:39 General appearance: Present: cooperative, A&O X 3, pleasant, no acute distress, answers questions appropriately Exam: General: Cooperative, pleasant, no acute distress, alert and oriented 3, answers questions appropriately HEENT: Normocephalic, bandage in place over left eye, left eye swollen closed, hematoma on left forehead and under left eye, laceration above left eyebrow, mild tenderness in muscles in posterior cervical region, neck supple, trachea midline, oral mucosa moist, no orophargeal erythema or exudates Respiratory: No accessory muscle usage, clear to auscultation bilaterally, no wheezes/rhonchi/rales appreciated Cardiovascular: Regular rate and rhythm, S1 and S2 present, no murmurs/rubs/ gallops/clicks appreciated GI/abdominal: Nondistended, nontender, soft, normal bowel sounds, no peritoneal signs Extremities: No calf tenderness, abrasions on right and left lower extremities, abrasions on left UE, trace pedal edema appreciated, warm, lower extremity pulses palpable and symmetrical Neurological: Alert and oriented 3, no facial droop, no focal deficits Skin: Dry, intact, normal color Internal Medicine: Result - Labs CBC & Chem 7: 07/29/17 03:27 07/29/17 03:27 Labs: Short CBC 07/28/17 07/28/17 07/29/17 Range/Units 15:39 21:06 03:27 WBC 4.2 L 4.2 L 4.4 (4.3-11.1) K/mcL Hgb 11.9 L 12.5 L 12.5 L (12.9-16.9) g/dL Hct 34.1 L 35.8 L 36.9 L (37.5-50.1) % Plt Count 91 L 90 L 100 L (140-400) K/mcL Neutrophils # 2.4 2.3 2.2 (1.6-8.9) K/mcL BMP 07/29/17 03:27 Sodium 138 Potassium 3.9 Chloride 103 Carbon Dioxide 31 H BUN 14 Creatinine 0.98 Glucose 126 H Calcium 9.2 - ABG Interpretation ABG results: PT/INR, D-dimer PT 17.4 Seconds (9.4-12.1) H 07/29/17 03:27 - VTE Reasons for not Prescribing Prophylaxis: Not indicated-Anticoagulated or INR therapeutic Documentation of Mechanical Device: Intermittent pneumatic compression device Consult Discharge Plan - Plan Referrals: Mari Johnson MD [Primary Care Provider] - <Gerry Claire - Last Filed: 07/29/17 13:32> Date of Encounter: 07/29/17 - Assessment and plan (1) Fall Current Visit: Yes Status: Acute Qualifiers: Encounter type: initial encounter Qualified Code(s): W19.XXXA - Unspecified fall, initial encounter (2) Traumatic hematoma of head Current Visit: Yes Status: Acute Qualifiers: Encounter type: initial encounter Qualified Code(s): S00.93XA - Contusion of unspecified part of head, initial encounter (3) IDDM (insulin dependent diabetes mellitus) Current Visit: Yes Status: Chronic (4) DVT prophylaxis Current Visit: Yes Status: Acute (5) Sick sinus syndrome Current Visit: Yes Status: Acute (6) Atrial fibrillation Current Visit: Yes Status: Acute Qualifiers: Atrial fibrillation type: unspecified Qualified Code(s): I48.91 - Unspecified atrial fibrillation - Time Spent With Patient Total time spent is greater than 50% in coordination of care (as documented) at patient's floor/unit and/or counseling patient: - Constitutional Vitals: Temp Pulse Resp BP Pulse Ox 98.3 F 65 16 148/86 96 07/29/17 06:59 07/29/17 06:59 07/29/17 06:59 07/29/17 06:59 07/29/17 07:39 Internal Medicine: Result - Labs CBC & Chem 7: 07/29/17 03:27 07/29/17 03:27 Labs: Short CBC 07/28/17 07/28/17 07/29/17 Range/Units 15:39 21:06 03:27 WBC 4.2 L 4.2 L 4.4 (4.3-11.1) K/mcL Hgb 11.9 L 12.5 L 12.5 L (12.9-16.9) g/dL Hct 34.1 L 35.8 L 36.9 L (37.5-50.1) % Plt Count 91 L 90 L 100 L (140-400) K/mcL Neutrophils # 2.4 2.3 2.2 (1.6-8.9) K/mcL BMP 07/29/17 03:27 Sodium 138 Potassium 3.9 Chloride 103 Carbon Dioxide 31 H BUN 14 Creatinine 0.98 Glucose 126 H Calcium 9.2 - ABG Interpretation ABG results: PT/INR, D-dimer PT 17.4 Seconds (9.4-12.1) H 07/29/17 03:27 - Attending Attestation I examined this patient and my medical decision-making was reviewed with the Resident Physician on 07/29/17. I agree with the documented findings, disposition and treatment plan as described except to the extent set forth below. No globe rupure, cornea is white. Hematoma is improving, Hb is stable. He was admitted for mechanical fall with expanding scalp hematoma by CT. Bradycardic, Cardio is following. Factor V leiden-oncology reports show anticoagulation is not indicated for SVTs, however, cardio eval recommends continuation of anticoagulations, despite recurrent falls, this time with head trauma. REsume haprin drip and bridge, PTOT eval. Hold BB, continue other home meds. For PCM placement a.m . Rest of details as in resident physician's documentation
[2017-07-29] MEDS: Insulin DETEMIR 100 UNIT/ML X5UNITS SQ SCH ×2 (11:53→21:56)
[2017-07-29] MEDS ORDERED: *HR* Warfarin 7.5 MG TABLET PO ONE (18:00)
[2017-07-29] MEDS ORDERED: Warfarin perPT PO PRN (18:00)
[2017-07-30 01:38] LABS: Basophils % 0.2 %; Eosinophils % 0.5 %; Hematocrit 37.7 % (37.5-50.1); Hemoglobin 13.6 g/dL (12.9-16.9); Immature Granulocytes % 0.3 % (0-4); Lymphocytes # 1.7 K/mcL (0.6-4.6); Lymphocytes % 27.6 %; Mean Corpuscular HGB Conc 36.1 g/dL (31.6-35.5); Mean Corpuscular Hemoglobin 35.5 pg (28.0-33.3); Mean Corpuscular Volume 98.4 fL (83.0-100.0); Mean Platelet Volume 10.4 fL (9.4-12.4); Monocytes # 0.5 K/mcL (0.0-1.3); Monocytes % 8.2 %; Neutrophils # 3.8 K/mcL (1.6-8.9); Nucleated Red Blood Cells 0.3 /100 WBC (0); Platelet Count 103 K/mcL (140-400); Red Blood Count 3.83 M/mcL (4.19-5.50); Segmented Neutrophils % 63.2 %
[2017-07-30 01:45] LABS: INR 1.3; Prothrombin Time 13.9 Seconds (9.4-12.1)
[2017-07-30 01:47] LABS: Activated Partial Thrombo Time 60.1 Seconds (26.0-36.0)
[2017-07-30 01:55] LABS: BUN/Creatinine Ratio 13 (6-26); Blood Urea Nitrogen 13 mg/dL (8-23); Calcium 9.2 mg/dL (8.6-10.3); Carbon Dioxide 25 mEq/L (23-29); Chloride 99 mEq/L (98-107); Glucose 295 mg/dL (70-105); Osmolality,Calculated 283 (280-300); Sodium 131 mEq/L (136-145); eGFR For African Americans > 60 (> 60); eGFR For Non-African Americans > 60 (> 60)
[2017-07-30] MEDS: amLODIPine 5 MG TABLET PO SCH ×2 (02:32→10:18)
[2017-07-30] MEDS: Mag Hydrox/Al Hydrox/Simeth 30 ML UDC PO PRN (04:35)
[2017-07-30] MEDS ORDERED: NON-FORMULARY MEDICATION 1 EACH EACH (Duloxetine Hcl [Cymbalta] 60 MG) PO SCH (09:00)
--- NOTE | 2017-07-30 09:08 | Internal Med Progress Note ---
<Genaro Levy - Last Filed: 07/30/17 14:01> Date of Encounter: 07/30/17 Time of Encounter: 09:00 - Assessment and plan (1) Sick sinus syndrome Current Visit: Yes Status: Acute Assessment and plan: Patient has history of bradycardia and SSS He was previously evaluated by cardiology and a pacemaker was recommended in 2016 for sick sinus syndrome (which he declined at that time) Bradycardia with pause are likely etiology of his fall Stop Metoprolol Consult cardiology: Pacemaker placed today Monitor heart rhythm on telemetry (2) Fall Current Visit: Yes Status: Acute Assessment and plan: Likely exacerbated by bradycardia/atrial fibrillation hopefully improvement will be seen after pacemaker palced Significant hematoma over left eye with some spreading to his right eye Initial head CT and repeat head CT are negative for intracranial bleed but do show progression of hematoma No bony abnormalities observed Patient anticoagulated with Coumadin prior to fall, likely contributory to hematoma Reversed INR with vitamin K and FFP yesterday Discussed patient AC with Heme/Onc given his underlying Factor V Leiden mutation and he does not need to be anticoagulated for this Cardiology feels that he needs to be anticoagulated for his atrial fibrillation agree that his anticoagulation should be help for improvement/resolution of his hematoma Patient will need PT/OT consults once stabilized Continue to monitor neuro status Qualifiers: Encounter type: initial encounter Qualified Code(s): W19.XXXA - Unspecified fall, initial encounter (3) Traumatic hematoma of head Current Visit: Yes Status: Acute Assessment and plan: Plan as above Qualifiers: Encounter type: initial encounter Qualified Code(s): S00.93XA - Contusion of unspecified part of head, initial encounter (4) IDDM (insulin dependent diabetes mellitus) Current Visit: Yes Status: Chronic Assessment and plan: Blood sugars controlled Patient takes insulin 70/30 units twice a day at home We will hold patient's home insulin Continue home basal insulin and SSI We will add 10 units of Levemir twice a day Stop Metformin Monitor glucose and adjust SSI accordingly (5) DVT prophylaxis Current Visit: Yes Status: Acute Assessment and plan: EPCD's Patient previously anticoagulated for atrial fibrillation, this was reversed due to progressive nature of patient hematoma Possible reinstitution of anticoagulation considered (6) Atrial fibrillation Current Visit: Yes Status: Acute Assessment and plan: History of atrial fibrillation On Coumadin with therapeutic INR at presentation Worsening hematoma seen in serial CT scans Coumadin reversed with vitamin K and fresh frozen plasma Hemoglobin has remained stable will hold heparin drip and coumadin Qualifiers: Atrial fibrillation type: unspecified Qualified Code(s): I48.91 - Unspecified atrial fibrillation - Time Spent With Patient Total time spent is greater than 50% in coordination of care (as documented) at patient's floor/unit and/or counseling patient: - Subjective Interval history: Patient is resting comfortably in the bed. He reports that he has noticed some swelling by his right eye. He denies having any vision changes or headaches. He denies any changes in his mentation or difficulty thinking. He denies any chest pain or palpitations. - Constitutional Vitals: Temp Pulse Resp BP Pulse Ox 98.4 F 79 16 177/90 95 07/30/17 06:54 07/30/17 06:54 07/30/17 06:54 07/30/17 06:54 07/30/17 06:54 General appearance: Present: cooperative, A&O X 3, pleasant, no acute distress, answers questions appropriately Exam: General: Cooperative, pleasant, no acute distress, alert and oriented 3, answers questions appropriately HEENT: Normocephalic, bandage in place over left eye, left eye swollen closed, hematoma on left forehead and under left eye, laceration above left eyebrow, mild tenderness in muscles in posterior cervical region, neck supple, trachea midline, oral mucosa moist, no orophargeal erythema or exudates, mild swelling and discoloration around his right eye Respiratory: No accessory muscle usage, clear to auscultation bilaterally, no wheezes/rhonchi/rales appreciated Cardiovascular: Regular rate and rhythm, S1 and S2 present, no murmurs/rubs/ gallops/clicks appreciated GI/abdominal: Nondistended, nontender, soft, normal bowel sounds, no peritoneal signs Extremities: No calf tenderness, abrasions on right and left lower extremities, abrasions on left UE, trace pedal edema appreciated, warm, lower extremity pulses palpable and symmetrical Neurological: Alert and oriented 3, no facial droop, no focal deficits Skin: Dry, intact, normal color Internal Medicine: Result - Labs CBC & Chem 7: 07/30/17 01:23 07/30/17 01:23 Labs: Short CBC 07/30/17 Range/Units 01:23 WBC 6.1 (4.3-11.1) K/mcL Hgb 13.6 (12.9-16.9) g/dL Hct 37.7 (37.5-50.1) % Plt Count 103 L (140-400) K/mcL Neutrophils # 3.8 (1.6-8.9) K/mcL BMP 07/30/17 01:23 Sodium 131 L Potassium 4.0 Chloride 99 Carbon Dioxide 25 BUN 13 Creatinine 1.03 Glucose 295 H Calcium 9.2 - ABG Interpretation ABG results: PT/INR, D-dimer PT 13.9 Seconds (9.4-12.1) H 07/30/17 01:23 - VTE Reasons for not Prescribing Prophylaxis: Not indicated-Anticoagulated or INR therapeutic Documentation of Mechanical Device: Intermittent pneumatic compression device Consult Discharge Plan - Plan Referrals: Mari Johnson MD [Primary Care Provider] - 08/07/17 10:00 am Kaveh Doll MD [Partnered Physician] - 08/03/17 8:30 am <Gerry Claire - Last Filed: 07/30/17 15:01> Date of Encounter: 07/30/17 - Assessment and plan (1) Fall Current Visit: Yes Status: Acute Qualifiers: Encounter type: initial encounter Qualified Code(s): W19.XXXA - Unspecified fall, initial encounter (2) Traumatic hematoma of head Current Visit: Yes Status: Acute Qualifiers: Encounter type: initial encounter Qualified Code(s): S00.93XA - Contusion of unspecified part of head, initial encounter (3) IDDM (insulin dependent diabetes mellitus) Current Visit: Yes Status: Chronic (4) DVT prophylaxis Current Visit: Yes Status: Acute (5) Sick sinus syndrome Current Visit: Yes Status: Acute (6) Atrial fibrillation Current Visit: Yes Status: Acute Qualifiers: Atrial fibrillation type: unspecified Qualified Code(s): I48.91 - Unspecified atrial fibrillation - Time Spent With Patient Total time spent is greater than 50% in coordination of care (as documented) at patient's floor/unit and/or counseling patient: - Constitutional Vitals: Temp Pulse Resp BP Pulse Ox 97.7 F 63 16 125/99 96 07/30/17 13:34 07/30/17 13:34 07/30/17 13:34 07/30/17 13:34 07/30/17 13:34 Internal Medicine: Result - Labs CBC & Chem 7: 07/30/17 01:23 07/30/17 01:23 Labs: Short CBC 07/30/17 Range/Units 01:23 WBC 6.1 (4.3-11.1) K/mcL Hgb 13.6 (12.9-16.9) g/dL Hct 37.7 (37.5-50.1) % Plt Count 103 L (140-400) K/mcL Neutrophils # 3.8 (1.6-8.9) K/mcL BMP 07/30/17 01:23 Sodium 131 L Potassium 4.0 Chloride 99 Carbon Dioxide 25 BUN 13 Creatinine 1.03 Glucose 295 H Calcium 9.2 - ABG Interpretation ABG results: PT/INR, D-dimer PT 13.9 Seconds (9.4-12.1) H 07/30/17 01:23 - Impressions Impressions Head CT 07/30/17 09:24 IMPRESSION: No acute intracranial abnormality. Stable appearance to a cephalohematoma involving the left frontal soft tissues and left orbit. D/ / 07/30/2017 11:26:11 Sita Johnson MD / [facility] Interpreting Provider: Sita Johnson MD Chest X-Ray 07/30/17 12:47 IMPRESSION: No acute process. Transvenous pacer now in place Stable cardiomegaly D/ / He Harley MD / He Harley MD Interpreting Provider: He Harley MD - Attending Attestation I examined this patient and my medical decision-making was reviewed with the Resident Physician on 07/30/17. I agree with the documented findings, disposition and treatment plan as described except to the extent set forth below. 61 M with CHF, Afib on Coumadin, Sick-sinus syndrome, DM, admitted following fall and bradycardia. No globe rupture, cornea is white. This a.m, hematoma spreading to the Right eye, L eye hematoma is stable, Hb is stable. repeat head CT states hematoms is stable. Afib/Sick-sinus syndrome-mgt per cardio. PCM today Factor V leiden-oncology reports show anticoagulation is not indicated for SVTs Discontinued heparin drip due to clinical spread of hematoma PTOT eval. Hold BB, continue other home meds. Rest of details as in resident physician's documentation
[2017-07-30] MEDS ORDERED: CeFAZolin Syr 3,000MG/30 ML 3,000 MG/30 ML SYRINGE IVPB ONE (09:41)
--- NOTE | 2017-07-30 09:47 | Event Note ---
Date of Encounter: 07/30/17 Time of Encounter: 09:45 - Cardiology Event Note Reviewed and discussed with Dr. Kaveh Doll. Known hx of sick sinus syndrome, tachy-elliot and was previously recommended to have PPM in 2016 and pt declined at that time. Presented bradycardic HR 30s-40s, now improved off BB. Discussed with pt, now agreeable to have PPM insertion. R/B/A discussed. Worsening facial hematoma, CT head ordered by primary team. As long as there are no acute intracranial findings on head CT, will proceed with PPM today. Okay to stop heparin gtt, does not need bridging for A-Fib.
[2017-07-30] MEDS: Insulin LISPRO 300 UNITS/3 ML VIAL SQ SCH ×3 (09:58→16:28)
[2017-07-30] MEDS: Insulin DETEMIR 100 UNIT/ML X5UNITS SQ SCH ×2 (09:59→21:27)
[2017-07-30] MEDS: ARIPiprazole 5 MG TABLET PO SCH (10:15)
[2017-07-30] MEDS: Ascorbic Acid 500 MG TABLET PO SCH (10:16)
[2017-07-30] MEDS: lamoTRIgine 100 MG TABLET PO SCH ×2 (10:16→21:21)
[2017-07-30] MEDS: Vitamin B Complex/Vit C/Vit E 1 EACH TABLET PO SCH (10:16)
[2017-07-30] MEDS: Lisinopril 20 MG TABLET PO SCH ×2 (10:16→21:20)
[2017-07-30] MEDS ORDERED: *HR* FentaNYL (PF) 100 MCG/2 ML VIAL ONE (11:19)
[2017-07-30] MEDS ORDERED: 0.9 % Sodium Chloride 500 ML ONE (11:20)
[2017-07-30] MEDS ORDERED: *HR* Midazolam HCl 2 MG/2 ML VIAL ONE (11:20)
[2017-07-30] MEDS ORDERED: Water for inj. (sterile) 10 ML IV ONE (11:21)
[2017-07-30] MEDS ORDERED: 0.9 % Sodium Chloride 1,000 ML ONE (11:27)
--- NOTE | 2017-07-30 11:51 | Pre-Sedation Evaluation ---
Pre-sedation evaluation - Pre-sedation checklist Date of procedure: 07/30/17 Procedure: Pacemaker Recent Vitals: Last Vital Signs Temp 98.4 F 07/30/17 06:54 Pulse 81 07/30/17 10:26 Resp 16 07/30/17 06:54 BP 176/90 07/30/17 10:26 Pulse Ox 95 07/30/17 06:54 H&P (including ROS) documented in medical record: Yes Previous reaction to sedatives/anesthetics: No Dietary Status: NPO after Midnight Airway Assessment: Patient can open mouth completely, TMJ function normal Dentition: poor dentition Possible difficult airway: No ASA Classification *see protocol: CLASS II-Mild systemic disease Plan of Care: Pt appropriate candidate for procedure/moderate/conscious sedation , Risks/benefits of procedure/sedation discussed w/ patient/family
--- NOTE | 2017-07-30 15:30 | Electrocardiograph Report ---
[address] [place], [place] [address] Test Date: 2017-07-27 Pat Name: Regino Hernandez Department: 103 Room: 2NE18 Gender: M Application Systems Engineer: : 1955 Requested By: Gerry Claire Order Number: [id number] Reading MD: Kaveh Doll Measurements Intervals Raymond Rate: 42 P: [place]: 0 QRS: 15 QRSD: 128 T: 29 QT: 485 QTc: 429 Interpretive Statements ATRIAL FIBRILLATION WITH SLOW VENTRICULAR RESPONSE RIGHT BUNDLE BRANCH BLOCK Electronically Signed On 07-30-2017 15:28:45 EDT by Kaveh Doll
[2017-07-30] MEDS ORDERED: CeFAZolin Pre 2,000 MG/100 ML 2,000 MG/100 ML BAG IVPB SCH (16:00)
[2017-07-30] MEDS: Acetaminophen 325 MG TABLET PO PRN (16:21)
[2017-07-30] MEDS: Furosemide 40 MG TABLET PO SCH (16:21)
[2017-07-30] MEDS: Aspirin Enteric Coated 81 MG Tablet PO SCH (16:21)
[2017-07-30] MEDS: hydroCHLOROthiazide 25 MG TABLET PO SCH (16:21)
[2017-07-30] MEDS ORDERED: *HR* OxyCODONE/APAP 5/325 TABLET PO ONE (19:44)
[2017-07-30] MEDS: CeFAZolin Pre 2,000 MG/100 ML 2,000 MG/100 ML BAG IVPB SCH (21:21)
[2017-07-30] MEDS: HYDROXYTRYPTOPHAN 100 MG PO SCH (21:28)
[2017-07-31] MEDS: CeFAZolin Pre 2,000 MG/100 ML 2,000 MG/100 ML BAG IVPB SCH (04:37)
[2017-07-31 05:02] LABS: Basophils % 0.2 %
[2017-07-31 05:04] LABS: Eosinophils % 0.5 %; Hematocrit 34.4 % (37.5-50.1); Hemoglobin 12.3 g/dL (12.9-16.9); Immature Granulocytes % 0.4 % (0-4); Immature Platelets 3.7 % (1.1-6.1); Lymphocytes # 1.5 K/mcL (0.6-4.6); Lymphocytes % 26.6 %; Mean Corpuscular HGB Conc 35.8 g/dL (31.6-35.5); Mean Corpuscular Hemoglobin 35.1 pg (28.0-33.3); Mean Corpuscular Volume 98.3 fL (83.0-100.0); Monocytes # 0.7 K/mcL (0.0-1.3); Monocytes % 11.5 %; Neutrophils # 3.5 K/mcL (1.6-8.9); Red Cell Distribution Width 15.2 % (11.5-14.5); Segmented Neutrophils % 60.8 %
[2017-07-31 05:11] LABS: Platelet Count 93 K/mcL (140-400)
[2017-07-31 05:22] LABS: BUN/Creatinine Ratio 16 (6-26); Blood Urea Nitrogen 14 mg/dL (8-23); Calcium 9.1 mg/dL (8.6-10.3); Carbon Dioxide 22 mEq/L (23-29); Chloride 99 mEq/L (98-107); Glucose 296 mg/dL (70-105); Osmolality,Calculated 285 (280-300); Sodium 132 mEq/L (136-145); eGFR For African Americans > 60 (> 60); eGFR For Non-African Americans > 60 (> 60)
--- NOTE | 2017-07-31 09:23 | Internal Med Progress Note ---
<Darrel Nunez - Last Filed: 07/31/17 13:54> Date of Encounter: 07/31/17 Time of Encounter: 09:23 - Assessment and plan (1) Sick sinus syndrome Current Visit: Yes Status: Acute Assessment and plan: Patient has history of bradycardia and SSS Likely contributed to recent traumatic fall. Cardiology placed pacemaker yesterday 07/30/17 Heart rate controlled in 60-85, irregular. Previously on warfarin, but discontinued. Resume Warfarin in 1 week, does not need heparin bridging. INR 1.3 yesterday. (2) Fall Current Visit: Yes Status: Acute Assessment and plan: Likley due to bradycardia secondary to sick sinus syndrome vs afib. Has hematoma over left eye and right eye that is spreading without loss of vision or blurry vision. Head CT x2 without intracranial bleed, but repeat Head CT 07/30/17 reported progession of hematoma, therefore discontinued anticoagulation and reversed warfarin. Given hx of Factor V Leiden mutuation and previous discussion with HemOnc, does not need anticoagulation for this. H history of afib and is now s/p pacemaker for bradycardia/sicksinussynddrome, resume warfarin in 1 week. INR 1.3 yesterday. Continue with PT/OT consults Continue with regular neuro checks Continue monitoring overnight. Qualifiers: Encounter type: initial encounter Qualified Code(s): W19.XXXA - Unspecified fall, initial encounter (3) Traumatic hematoma of head Current Visit: Yes Status: Acute Assessment and plan: continued spread to right periorbital region, not resulting in difficulties with vision. Continue with Fall precautions. PT/OT consults Qualifiers: Encounter type: initial encounter Qualified Code(s): S00.93XA - Contusion of unspecified part of head, initial encounter (4) IDDM (insulin dependent diabetes mellitus) Current Visit: Yes Status: Chronic Assessment and plan: Blood sugars controlled Patient takes insulin 70/30 units twice a day at home Will increase Levemir to 12 Units bid as has received 10 Units bid and blood sugars in upper 200s. Monitor glucose. Continue with sliding scale insulin. (5) DVT prophylaxis Current Visit: Yes Status: Acute Assessment and plan: EPCD's Patient previously anticoagulated with warfarin for afib which was reversed due to progressive hematoma secondary to fall. Resume warfarin in 1 week (08/07/17) (6) Atrial fibrillation Current Visit: Yes Status: Acute Assessment and plan: History of atrial fibrillation Previously on coumadin and therapeutic Coumadin reversed with VitK and FFP due to worsening hematoma secondary to fall. Continue to hold anticoagulation. Resume in 1 week with warfarin per plan in assessment above. Qualifiers: Atrial fibrillation type: unspecified Qualified Code(s): I48.91 - Unspecified atrial fibrillation - Time Spent With Patient Total time spent is greater than 50% in coordination of care (as documented) at patient's floor/unit and/or counseling patient: - Subjective Interval history: Patient reports doing well overnight. Reports continued spread of hematoma to right eye, but can see out of it without difficulty and does report some chest pain around the incision site where the pacemaker was placed. Patient denies fevers, chills, sweats, nausea, vomiting, shortness of breath or cough, abdominal pain, changes in bowels or bladder, weakness, or loss of sensation. - Constitutional Vitals: Temp Pulse Resp BP Pulse Ox 97.9 F 65 17 164/65 97 07/31/17 07:56 07/31/17 07:56 07/31/17 07:56 07/31/17 07:56 07/31/17 07:56 General appearance: Present: cooperative, A&O X 3, pleasant, no acute distress, obese, answers questions appropriately - Head Head exam: Present: normocephalic Additional comments: bandaged in place over top of forehead. Left eye swollen closed with hematoma of left forehead and left eye, not actively bleeding, extension of hematoma to right periorbital but PERRL and EOMI - Eye Eye exam: Present: EOMI, normal appearance, periorbital swelling, PERRL - ENT ENT exam: Present: mucous membranes moist, normal exam, normal oropharynx - Neck Additional comments: mild posterior cervical tenderness - Respiratory Respiratory exam: Present: CTAB. Absent: rales, rhonchi, wheezes - Cardiovascular Cardiovascular exam: Present: irregular rhythm, +S1, +S2 Additional comments: right upper chest incision covered, dressing clean and dry. - GI/Abdominal GI/Abdominal exam: Present: normal bowel sounds, soft. Absent: tenderness - Extremities Exam Extremities exam: Present: warm. Absent: pedal edema, tenderness - Neurological Exam Neurological exam: Present: alert, oriented X3. Absent: facial droop, speech deficit - Skin Skin exam: Present: abrasion (right and left lower extremities, left upper extremities), dry, intact, normal color, warm Internal Medicine: Result - Labs CBC & Chem 7: 07/31/17 04:09 07/31/17 04:09 Labs: Short CBC 07/31/17 Range/Units 04:09 WBC 5.7 (4.3-11.1) K/mcL Hgb 12.3 L (12.9-16.9) g/dL Hct 34.4 L (37.5-50.1) % Plt Count 93 L (140-400) K/mcL Neutrophils # 3.5 (1.6-8.9) K/mcL BMP 07/31/17 07/31/17 04:09 04:09 Sodium 132 L 132 L Potassium 4.0 4.0 Chloride 99 99 Carbon Dioxide 22 L 22 L BUN 14 14 Creatinine 0.85 0.85 Glucose 296 H Calcium 9.1 - ABG Interpretation ABG results: PT/INR, D-dimer PT 13.9 Seconds (9.4-12.1) H 07/30/17 01:23 - Impressions Impressions Head CT 07/30/17 09:24 IMPRESSION: No acute intracranial abnormality. Stable appearance to a cephalohematoma involving the left frontal soft tissues and left orbit. D/ / 07/30/2017 11:26:11 Sita Johnson MD / [facility] Interpreting Provider: Sita Johnson MD Chest X-Ray 07/30/17 12:47 IMPRESSION: No acute process. Transvenous pacer now in place Stable cardiomegaly D/ / He Harley MD / He Harley MD Interpreting Provider: He Harley MD - VTE Reasons for not Prescribing Prophylaxis: Not indicated-Anticoagulated or INR therapeutic Documentation of Mechanical Device: Intermittent pneumatic compression device Consult Discharge Plan - Plan Additional Instructions: ACTIVITY: Moderate activity for the next 7 days. No lifting more than 5 pounds ( gallon of milk) for 4-6 weeks. Avoid lifting your arm on the same side as the device for 4 weeks. BATHING /SHOWERING: Do not remove the large bandage over the site for 2 days. Do not allow the device to get wet for 7-10 days. You may bathe/shower, but do not use soap and water on the site. When bathing, keep the site dry by covering with Saran wrap or a towel. WOUND CARE: The white steri-strips will start to peel away and come off after 14 days, or your doctor will remove them after [address] anything into or on top of the incision. Do not use cotton swabs. Do not use any antibiotic ointment or Vitamin E on the site. REMINDERS: You may use electrical devices, such as, microwaves, hair dryers, electric razors, electric blankets, etc. as long as they are in good condition and kept 6 -8 inches away from the device. It is recommended to use cell phones on the opposite side of your device. Notify security personnel at the airport that you have a device before you go through airport security screening. When at places with security monitors, such as a grocery store, do not linger near these monitors. It is fine to walk past them in a normal manner. Refer to your owners manual for more specific directions. CARRY YOUR PACEMAKER/ICD CARD WITH YOU AT ALL TIMES Return to work as instructed per physician Resume driving as instructed per physician Keep all scheduled follow up appointments Resume medications as instructed Contact [facility] ( ) if: You develop excessive bleeding from insertion or wound site not controlled by applying pressure You develop a fever greater than 101 degrees Fahrenheit Your incision becomes reddened at or around the site Your incision develops yellowish or greenish drainage or development of white pimple-like bumps You experience excessive pain You develop swelling in your ankles You experience muscle switching You develop excessive hiccupping If you experience chest pain, shortness of breath, dizziness, or extreme tiredness, stop the activity and rest. Please notify [facility] office if you experience any of these symptoms and they are not relieved by rest please call 911! Referrals: Mari Johnson MD [Primary Care Provider] - 08/07/17 10:00 am Kaveh Doll MD [Partnered Physician] - 08/03/17 8:30 am <Miguel Irby - Last Filed: 07/31/17 18:01> Date of Encounter: 07/31/17 - Assessment and plan (1) Sick sinus syndrome Current Visit: Yes Status: Acute (2) Fall Current Visit: Yes Status: Acute Qualifiers: Encounter type: subsequent encounter Qualified Code(s): W19.XXXD - Unspecified fall, subsequent encounter (3) Traumatic hematoma of head Current Visit: Yes Status: Acute Qualifiers: Encounter type: subsequent encounter Qualified Code(s): S00.93XD - Contusion of unspecified part of head, subsequent encounter (4) IDDM (insulin dependent diabetes mellitus) Current Visit: Yes Status: Chronic (5) DVT prophylaxis Current Visit: Yes Status: Acute (6) Atrial fibrillation Current Visit: Yes Status: Chronic Qualifiers: Atrial fibrillation type: paroxysmal Qualified Code(s): I48.0 - Paroxysmal atrial fibrillation (7) Hypertension Current Visit: No Status: Chronic Qualifiers: Hypertension type: essential hypertension Qualified Code(s): I10 - Essential (primary) hypertension (8) Morbid obesity with BMI of 45.0-49.9, adult Current Visit: Yes Status: Chronic - Time Spent With Patient Total time spent is greater than 50% in coordination of care (as documented) at patient's floor/unit and/or counseling patient: - Constitutional Vitals: Temp Pulse Resp BP Pulse Ox 97.6 F 59 16 139/78 98 07/31/17 15:24 07/31/17 15:24 07/31/17 15:24 07/31/17 15:24 07/31/17 15:24 Internal Medicine: Result - Labs CBC & Chem 7: 07/31/17 04:09 07/31/17 04:09 Labs: Short CBC 07/31/17 Range/Units 04:09 WBC 5.7 (4.3-11.1) K/mcL Hgb 12.3 L (12.9-16.9) g/dL Hct 34.4 L (37.5-50.1) % Plt Count 93 L (140-400) K/mcL Neutrophils # 3.5 (1.6-8.9) K/mcL BMP 07/31/17 07/31/17 04:09 04:09 Sodium 132 L 132 L Potassium 4.0 4.0 Chloride 99 99 Carbon Dioxide 22 L 22 L BUN 14 14 Creatinine 0.85 0.85 Glucose 296 H Calcium 9.1 - ABG Interpretation ABG results: PT/INR, D-dimer PT 13.9 Seconds (9.4-12.1) H 07/30/17 01:23 - Impressions Impressions Head CT 07/30/17 09:24 IMPRESSION: No acute intracranial abnormality. Stable appearance to a cephalohematoma involving the left frontal soft tissues and left orbit. D/ / 07/30/2017 11:26:11 Sita Johnson MD / [facility] Interpreting Provider: Sita Johnson MD Chest X-Ray 07/31/17 06:00 IMPRESSION: No acute process. Transvenous pacer in place, no pneumothorax, stable cardiomegaly D/ / He Harley MD / He Harley MD Interpreting Provider: He Harley MD - Attending Attestation I examined this patient and my medical decision-making was reviewed with the Resident Physician on 07/31/17. I agree with the documented findings, disposition and treatment plan as described except to the extent set forth below. Mr Hernandez is currently admitted for sick sinus syndrome and fall. He is s/p pacer. He remains moderate to high risk due to potential for worsening clinical status. Mr Hernandez is resting comfortably. No fever or chills. No issues after pacer. Continues with significant swelling and ecchymoses on face. Exam alert Comfortable Mucus membranes dry Heart distant No wheeze Ecchymoses on face I/P 1. Fall 2. Sick sinus s/p PPM Further diagnoses and plan as above. Anticipate d/c tomorrow.
[2017-07-31] MEDS: Vitamin B Complex/Vit C/Vit E 1 EACH TABLET PO SCH (09:50)
[2017-07-31] MEDS: lamoTRIgine 100 MG TABLET PO SCH ×2 (09:51→20:18)
[2017-07-31] MEDS: Furosemide 40 MG TABLET PO SCH (09:51)
[2017-07-31] MEDS: amLODIPine 5 MG TABLET PO SCH (09:52)
[2017-07-31] MEDS: Lisinopril 20 MG TABLET PO SCH ×2 (09:52→20:18)
[2017-07-31] MEDS: hydroCHLOROthiazide 25 MG TABLET PO SCH (09:52)
[2017-07-31] MEDS: ARIPiprazole 5 MG TABLET PO SCH (09:53)
[2017-07-31] MEDS: Ascorbic Acid 500 MG TABLET PO SCH (09:53)
[2017-07-31] MEDS: Metoprolol 100 MG TABLET PO SCH ×2 (09:53→20:18)
[2017-07-31] MEDS: Aspirin Enteric Coated 81 MG Tablet PO SCH (09:53)
[2017-07-31] MEDS: Insulin LISPRO 300 UNITS/3 ML VIAL SQ SCH ×3 (09:54→18:12)
[2017-07-31] MEDS: Insulin DETEMIR 100 UNIT/ML X5UNITS SQ SCH ×2 (10:07→23:33)
--- NOTE | 2017-07-31 11:22 | Electrophysiology ProgressNote ---
Date of Encounter: 07/31/17 Time of Encounter: 11:19 Assessment and Plan (1) Sick sinus syndrome Current Visit: Yes Status: Acute Previously diagnosed with sick sinus syndrome and PPM was recommended in 2016. Pt opted to wait at that time. Presented with mechanical fall, facial hematoma and contusions and found to have HR 30s-40s. Recent TTE 06/2017 EF 60%. PPM inserted yesterday. No acute complaints. Device check okay, CXR stable. Device site healing well. No bleeding, hematoma or ecchymosis noted. Pt was on Lopressor 100mg BID at home. Stopped on admission due to bradycardia, now resumed since PPM was placed. Recommend holding Coumadin for 1 week s/p PPM, then resuming. No heparin or Lovenox bridge necessary. Cardiology/EP signing off. Reconsult PRN. Follow-up in 7-10 days for wound check , 4-6 weeks device check and [address] Kaveh Doll. (2) Atrial fibrillation with slow ventricular response Current Visit: Yes Status: Acute As above, diagnosed with sick sinus syndrome. Presented A-Fib slow ventricular response HR 30s-40s. On lopressor 100mg BID, will held and now resumed. Pt also has Factor V Leiden mutation, but no hx of PE/DVT and is only on Coumadin for A-Fib. Head CTs have been negative for acute bleeding, but with significant hematomas. Discussed with Dr. Kaveh Doll. Hold Coumadin for 1 week s/p PPM then resume. No bridging warranted. Discussion w patient/family: The assessment and plan as outlined above was discussed with the patient and/or family members who expressed understanding and agreement. All questions were answered. Thank you for involving us in the care of your patient. Please call with any questions. I will discuss all the above with Dr. Kaveh Doll and make changes as necessary. Subjective Principal diagnosis: chest pain Interval history: S/P PPM yesterday for tachy-elliot, SSS. Pt currently sleeping. Discussion with at bedside and all questions answered. Resumed BB now that PPM has been inserted. CXR stable, device check okay. Objective Vital Signs, Last 4 Hours Temp Pulse Resp BP Pulse Ox 07/31/17 07:56 97.9 F 65 17 164/65 97 Vital Signs Temp Pulse Resp BP Pulse Ox 07/31/17 07:56 97.9 F 65 17 164/65 97 07/31/17 04:04 97.7 F 85 16 165/81 94 07/30/17 23:00 97.2 F L 79 16 156/84 96 07/30/17 18:57 98.4 F 84 17 176/95 97 07/30/17 18:20 77 172/90 07/30/17 18:01 74 175/78 07/30/17 17:00 65 173/89 07/30/17 16:15 67 162/85 07/30/17 16:04 97.7 F 70 16 158/65 96 07/30/17 16:03 98.4 F 75 18 175/91 96 07/30/17 16:00 74 165/81 07/30/17 15:30 68 152/61 07/30/17 15:00 71 149/80 07/30/17 14:30 68 152/75 07/30/17 14:15 72 152/76 07/30/17 14:00 74 150/65 07/30/17 13:45 68 133/91 07/30/17 13:34 97.7 F 63 16 125/99 96 07/30/17 13:30 69 125/99 Intake and Output 07/30/17 07/31/17 07/31/17 23:59 07:59 15:59 Intake Total 100 / 100 0 / 0 Output Total 400 / 400 900 / 900 Balance -300 / -300 -900 / -900 Intake: IV Fluids 100 / 100 Ancef Premix 2,000 MG/100 ML 2, 100 / 100 000 mg In 100 ml @ 200 mls/hr IVPB Q8H [facility] Rx#:[id number] Oral 0 / 0 0 / 0 Output: Urine 400 / 400 900 / 900 Other: Meal Breakfast Percent of Meal Consumed 0% Weight 163.4 kg Blood Glucose* 292 317 Patient Weight 07/31/17 23:59 Weight 163.4 kg General: No Apparent Distress, Other (sleeping) HEENT: Atraumatic, Normocephaly, Mucus Membranes Moist Neck: No JVD, Normal carotid pulses Cardiac: Other (irregularly irregular) Lungs: Normal Breath Sounds, No Wheeze, Rales, Rhonchi Neuro: Other (sleeping) Abdomen: Soft, Non-Tender Skin: Other (left sided device site healing well. Steri strips intact. No bleeding, hematoma or ecchymosis) Musculoskeletal: No Chest Wall Tenderness Extremities: No Clubbing, No Cyanosis, No Edema, Normal Pulses Results 07/31/17 04:09 07/31/17 04:09 Lab Results 07/31/17 07/31/17 07/31/17 04:09 04:09 04:09 WBC 5.7 Hgb 12.3 L Hct 34.4 L Plt Count 93 L Sodium 132 L 132 L Potassium 4.0 4.0 Chloride 99 99 Carbon Dioxide 22 L 22 L BUN 14 14 Creatinine 0.85 0.85 Glucose 296 H Calcium 9.1 Short CBC 07/31/17 Range/Units 04:09 WBC 5.7 (4.3-11.1) K/mcL Hgb 12.3 L (12.9-16.9) g/dL Hct 34.4 L (37.5-50.1) % Plt Count 93 L (140-400) K/mcL Neutrophils # 3.5 (1.6-8.9) K/mcL BMP 07/31/17 07/31/17 Range/Units 04:09 04:09 Sodium 132 L 132 L (136-145) mEq/L Potassium 4.0 4.0 (3.5-5.1) mEq/L Chloride 99 99 (98-107) mEq/L Carbon Dioxide 22 L 22 L (23-29) mEq/L BUN 14 14 (8-23) mg/dL Creatinine 0.85 0.85 (0.70-1.30) mg/dL Glucose 296 H (70-105) mg/dL Calcium 9.1 (8.6-10.3) mg/dL Impressions Cervical Spine CT 07/27/17 20:39 IMPRESSION: No acute abnormality of the cervical spine. Fixation hardware appears intact. D/ / 07/27/2017 21:54:35 Stanley Saldivar MD / [facility] Interpreting Provider: Stanley Saldivar MD Head CT 07/30/17 09:24 IMPRESSION: No acute intracranial abnormality. Stable appearance to a cephalohematoma involving the left frontal soft tissues and left orbit. D/ / 07/30/2017 11:26:11 Sita Johnson MD / [facility] Interpreting Provider: Sita Johnson MD Chest X-Ray 07/30/17 12:47 IMPRESSION: No acute process. Transvenous pacer now in place Stable cardiomegaly D/ / He Harley MD / He Harley MD Interpreting Provider: He Harley MD Chest X-Ray 07/31/17 06:00 IMPRESSION: No acute process. Transvenous pacer in place, no pneumothorax, stable cardiomegaly D/ / He Harley MD / He Harley MD Interpreting Provider: eH Harley MD Active Medications Acetaminophen (Tylenol) 650 mg PO Q6H PRN PRN Reason: Mild Pain/Fever Stop: 01/27/18 02:02 Last Admin: 07/30/17 16:21 Dose: 650 mg Al Hydrox/Mg Hydrox/Simethicone (Maalox) 15 ml PO Q6HR PRN; Protocol PRN Reason: Dyspepsia Stop: 01/27/18 02:11 Last Admin: 07/30/17 04:35 Dose: 15 ml Amlodipine Besylate (Norvasc) 10 mg PO DAILY [facility] PRN Reason: Protocol Stop: 01/29/18 02:21 Last Admin: 07/31/17 09:52 Dose: 10 mg Aripiprazole (Abilify) 5 mg PO DAILY [facility] Stop: 01/29/18 09:01 Last Admin: 07/31/17 09:53 Dose: 5 mg Ascorbic Acid (Vitamin C) 500 mg PO DAILY [facility] Stop: 01/29/18 09:01 Last Admin: 07/31/17 09:53 Dose: 500 mg Aspirin (Aspirin Ec) 81 mg PO DAILY [facility] Stop: 01/29/18 09:01 Last Admin: 07/31/17 09:53 Dose: 81 mg Atorvastatin Calcium (Lipitor) 20 mg PO DAILY [facility] Stop: 01/27/18 09:01 Last Admin: 07/31/17 09:52 Dose: 20 mg Cyclobenzaprine HCl (Flexeril) 10 mg PO TID PRN PRN Reason: MUSCLE PAIN Stop: 01/29/18 07:41 Dextrose/Water (Dextrose 50% (Syg)) 25 ml IVP AD PRN PRN Reason: Hypoglycemia Stop: 01/27/18 02:02 Doxazosin Mesylate (Cardura) 8 mg PO HS [facility] Stop: 01/29/18 21:01 Last Admin: 07/30/17 21:20 Dose: 8 mg Duloxetine HCl (Cymbalta) 60 mg PO BID [facility] Stop: 01/27/18 11:16 Last Admin: 07/31/17 09:51 Dose: 60 mg Furosemide (Lasix) 40 mg PO DAILY [facility] Stop: 01/29/18 09:01 Last Admin: 07/31/17 09:51 Dose: 40 mg Glucagon (Glucagen) 1 mg IM ONCE PRN PRN Reason: Hypoglycemia Stop: 01/27/18 02:02 Glucose (Gluctose) 15 gm PO ONCE PRN PRN Reason: Hypoglycemia Stop: 01/27/18 02:02 Glucose (Gluctose) 30 gm PO ONCE PRN PRN Reason: Hypoglycemia Stop: 01/27/18 02:02 Hydralazine HCl (Hydralazine) 10 mg IVP Q6HR PRN PRN Reason: Hypertension Stop: 01/29/18 02:20 Last Admin: 07/31/17 04:36 Dose: 10 mg Hydrochlorothiazide (Hydrochlorothiazide) 25 mg PO DAILY [facility] PRN Reason: Protocol Stop: 01/29/18 09:01 Last Admin: 07/31/17 09:52 Dose: 25 mg Dextrose (Dextrose 5%) 1,000 mls @ 100 mls/hr IVC .Q10H PRN PRN Reason: HYPOGLYCEMIA Stop: 01/27/18 02:02 Insulin Detemir (Levemir) 12 unit SQ BID [facility] Stop: 01/30/18 10:03 Insulin Human Lispro (Humalog) 0 units SQ TIDAC [facility] PRN Reason: Protocol Stop: 01/27/18 07:31 Last Admin: 07/31/17 09:54 Dose: 10 units Lamotrigine (Lamictal) 200 mg PO BID [facility] Stop: 01/27/18 09:01 Last Admin: 07/31/17 09:51 Dose: 200 mg Lisinopril (Zestril) 20 mg PO BID [facility] PRN Reason: Protocol Stop: 01/29/18 09:01 Last Admin: 07/31/17 09:52 Dose: 20 mg Metoprolol Tartrate (Lopressor) 100 mg PO BID [facility] Stop: 01/30/18 09:01 Last Admin: 07/31/17 09:53 Dose: 100 mg Naloxone HCl (Narcan) 0.4 mg IVP Q2MIN PRN PRN Reason: SEE COMMENTS Stop: 01/27/18 02:02 Pharmacy Profile Note (Patient Taking Own Medication) 1 each PO HS [facility] Stop: 01/29/18 21:01 Last Admin: 07/30/17 21:28 Dose: Not Given Vitamin B Complex/Vit C/Vit E (Stresstab) 1 each PO DAILY [facility] Stop: 01/27/18 09:01 Last Admin: 07/31/17 09:50 Dose: 1 each - Imaging and Cardiology Echo: report reviewed - EKG Interpretation EKG results cardiology: other (12 hr tele AVG HR 79, A-Fib, intermittent pacing noted) - VTE Reasons for not Prescribing Prophylaxis: Not indicated-Anticoagulated or INR therapeutic Documentation of Mechanical Device: Intermittent pneumatic compression device Consult Discharge Plan - Plan Additional Instructions: ACTIVITY: Moderate activity for the next 7 days. No lifting more than 5 pounds ( gallon of milk) for 4-6 weeks. Avoid lifting your arm on the same side as the device for 4 weeks. BATHING /SHOWERING: Do not remove the large bandage over the site for 2 days. Do not allow the device to get wet for 7-10 days. You may bathe/shower, but do not use soap and water on the site. When bathing, keep the site dry by covering with Saran wrap or a towel. WOUND CARE: The white steri-strips will start to peel away and come off after 14 days, or your doctor will remove them after [address] anything into or on top of the incision. Do not use cotton swabs. Do not use any antibiotic ointment or Vitamin E on the site. REMINDERS: You may use electrical devices, such as, microwaves, hair dryers, electric razors, electric blankets, etc. as long as they are in good condition and kept 6 -8 inches away from the device. It is recommended to use cell phones on the opposite side of your device. Notify security personnel at the airport that you have a device before you go through airport security screening. When at places with security monitors, such as a grocery store, do not linger near these monitors. It is fine to walk past them in a normal manner. Refer to your owners manual for more specific directions. CARRY YOUR PACEMAKER/ICD CARD WITH YOU AT ALL TIMES Return to work as instructed per physician Resume driving as instructed per physician Keep all scheduled follow up appointments Resume medications as instructed Contact [facility] ( ) if: You develop excessive bleeding from insertion or wound site not controlled by applying pressure You develop a fever greater than 101 degrees Fahrenheit Your incision becomes reddened at or around the site Your incision develops yellowish or greenish drainage or development of white pimple-like bumps You experience excessive pain You develop swelling in your ankles You experience muscle switching You develop excessive hiccupping If you experience chest pain, shortness of breath, dizziness, or extreme tiredness, stop the activity and rest. Please notify [facility] office if you experience any of these symptoms and they are not relieved by rest please call 911! Referrals: Mari Johnson MD [Primary Care Provider] - 08/07/17 10:00 am Kaveh Doll MD [Partnered Physician] - 08/03/17 8:30 am
[2017-07-31] MEDS: HYDROXYTRYPTOPHAN 100 MG PO SCH (23:32)
[2017-08-01 05:12] LABS: Hemoglobin 11.3 g/dL (12.9-16.9); Immature Platelets 6.5 % (1.1-6.1); Mean Corpuscular HGB Conc 34.2 g/dL (31.6-35.5); Mean Corpuscular Hemoglobin 33.5 pg (28.0-33.3); Mean Corpuscular Volume 97.9 fL (83.0-100.0); Red Blood Count 3.37 M/mcL (4.19-5.50)
[2017-08-01 05:29] LABS: BUN/Creatinine Ratio 15 (6-26); Blood Urea Nitrogen 16 mg/dL (8-23); Calcium 8.7 mg/dL (8.6-10.3); Carbon Dioxide 25 mEq/L (23-29); Chloride 98 mEq/L (98-107); Glucose 235 mg/dL (70-105); Osmolality,Calculated 285 (280-300); Potassium 4.1 mEq/L (3.5-5.1); Sodium 133 mEq/L (136-145); eGFR For African Americans > 60 (> 60); eGFR For Non-African Americans > 60 (> 60)
[2017-08-01] MEDS: amLODIPine 5 MG TABLET PO SCH (09:01)
[2017-08-01] MEDS: Metoprolol 100 MG TABLET PO SCH (09:01)
[2017-08-01] MEDS: Furosemide 40 MG TABLET PO SCH (09:01)
[2017-08-01] MEDS: Ascorbic Acid 500 MG TABLET PO SCH (09:01)
[2017-08-01] MEDS: Lisinopril 20 MG TABLET PO SCH (09:01)
[2017-08-01] MEDS: Vitamin B Complex/Vit C/Vit E 1 EACH TABLET PO SCH (09:02)
[2017-08-01] MEDS: hydroCHLOROthiazide 25 MG TABLET PO SCH (09:02)
[2017-08-01] MEDS: lamoTRIgine 100 MG TABLET PO SCH (09:02)
[2017-08-01] MEDS: Insulin LISPRO 300 UNITS/3 ML VIAL SQ SCH (09:02)
[2017-08-01] MEDS: ARIPiprazole 5 MG TABLET PO SCH (09:02)
[2017-08-01] MEDS: Aspirin Enteric Coated 81 MG Tablet PO SCH (09:02)
[2017-08-01] MEDS: Insulin DETEMIR 100 UNIT/ML X5UNITS SQ SCH (09:20)
--- NOTE | 2017-08-01 10:46 | Physician Discharge Referral ---
Home Health/Hosp Referral Info Transfer to: Home Health Provider in Charge Post Discharge: PCP - Diagnosis (1) Sick sinus syndrome Priority: Primary Status: Acute (2) Traumatic hematoma of head Priority: Primary Status: Acute (3) Hypertension Priority: Primary Status: Chronic (4) Fall Priority: Primary Status: Acute (5) IDDM (insulin dependent diabetes mellitus) Priority: Primary Status: Chronic (6) DVT prophylaxis Priority: Secondary Status: Acute (7) Atrial fibrillation Priority: Primary Status: Chronic (8) Morbid obesity with BMI of 45.0-49.9, adult Priority: Primary Status: Chronic - Respiratory Orders Smoking Cessation: Smoking cessation has been advised. For more information, call the [place] Tobacco Quit Line at 0-523-WVVH-NOW. - Diet/Nutrition Diet/Nutrition Orders: No Concentrated Sweets - Activity Activity Orders: Ambulate - Services Needed Following services are medically necessary services: Nursing, Physical Therapy, Occupational Therapy - Transfer Medications Prescriptions: Tobramycin Opth SOLN 1 drop LEFT EYE TID #1 bottle Home Medications: 5-Hydroxytryptophan (5-Htp) [5-Htp] 100 mg PO HS 10/20/15 [History] Aripiprazole [Abilify] 5 mg PO DAILY 10/20/15 [History] Ascorbate Calcium/Bioflavonoid [Dianne-C 500 mg Tablet] 1 each PO DAILY 10/20/15 [History] Atorvastatin Calcium [Lipitor] 20 mg PO DAILY 10/20/15 [History] Cyclobenzaprine [Flexeril] 10 mg PO TID PRN 10/20/15 [History] Doxazosin [Cardura] 8 - 12 mg PO HS 10/20/15 [History] Duloxetine HCl [Cymbalta] 60 mg PO BID 10/20/15 [History] Furosemide [Lasix] 40 mg PO DAILY 10/20/15 [History] Lisinopril [Zestril] 20 mg PO BID 10/20/15 [History] Metoprolol [Lopressor] 100 mg PO BID 10/20/15 [History] Vitamin B Complex 1 each PO DAILY 10/20/15 [History] lamoTRIgine [Lamictal] 200 mg PO BID 10/20/15 [History] Mag Hydrox/Al Hydrox/Simeth [Maalox] 15 ml PO Q6HR PRN #0 udc 10/26/15 [Rx] Ibuprofen [Motrin Ib] 400 mg PO Q4H PRN 07/18/17 [History] Insulin NPH/REG 70/30 [HumuLIN 70/30 VIAL] 50 unit SQ BIDWM 07/18/17 [History] Metformin HCl [Fortamet] 500 mg PO BID 07/18/17 [History] Tobramycin Opth SOLN 1 drop LEFT EYE TID #1 bottle 08/01/17 [Rx] Allergies/Adverse Reactions: 3 Allergy/AdvReac Type Severity Reaction Status Date / Time Hydromorphone [From Dilaudid] AdvReac See Verified 07/27/17 22:33 Comments Certification: Further, I certify that my clinical findings support that this patient is homebound (i.e. absences from home require considerable and taxing effort and are for medical reasons or sikh services or infrequently or short duration when for other reasons) because: Homebound Reason: Severity of cardiac or pulmonary status limits activity tolerance Attestation: My signature below is to certify that this patient is under my care and that I, or nurse practitioner, or a physician's payroll and benefits assistant working with me, has a face-to -face encounter with this patient.
--- NOTE | 2017-08-01 10:46 | Discharge Summary ---
<Genaro Levy - Last Filed: 08/01/17 13:16> - NOTES TO OUTPATIENT PROVIDER Notes to Outpatient Provider: Patient presented to [facility] on 07/27/17 after having fallen at home and causing a significant contusion and hemaatoma over and around his left eye and forehead. He had previously been on warfarin for his atrial fibrillation. He was significantly bradycardic with up to a 4 second pause in his heart rate. He underwent several CT scans of his head, which did not show any intracranial bleeding. What was seen was progression of his hematoma. This stablized once his anticoagulation was held. He was seen by cardiology, who had previously recommended a pacemaker due to his Sick Sinus Syndrome, and he underwent placement of a pacemaker on 07/31/17. He is safe/ stable for discharge at this point, but will need to be monitored at home for the next week for concerns of further falls. His anticoagulation will also be held for a week following discharge. Continuation of his anticoagulation will need to be reassessed in 1-2 weeks in order to weight the risks vs benefits, about whether there has been resolution of his lightheadedness/falls, and the status of his hematoma. Date of Encounter: 08/01/17 Time of Encounter: 08:15 - Discharge Diagnosis (1) Sick sinus syndrome Priority: Primary Status: Acute (2) Traumatic hematoma of head Priority: Primary Status: Acute Qualifiers: Encounter type: subsequent encounter Qualified Code(s): S00.93XD - Contusion of unspecified part of head, subsequent encounter (3) Fall Priority: Primary Status: Acute Qualifiers: Encounter type: subsequent encounter Qualified Code(s): W19.XXXD - Unspecified fall, subsequent encounter (4) Hypertension Priority: Primary Status: Chronic Qualifiers: Hypertension type: essential hypertension Qualified Code(s): I10 - Essential (primary) hypertension (5) IDDM (insulin dependent diabetes mellitus) Priority: Primary Status: Chronic (6) DVT prophylaxis Priority: Secondary Status: Acute (7) Atrial fibrillation Priority: Primary Status: Chronic Qualifiers: Atrial fibrillation type: paroxysmal Qualified Code(s): I48.0 - Paroxysmal atrial fibrillation (8) Morbid obesity with BMI of 45.0-49.9, adult Priority: Primary Status: Chronic Hospital course: Mr. Hernandez is a 61 year old male with prior medical history of diabetes, atrial fibrillation, sick sinus syndrome, and hypertension. He presented to [facility] on 07/27/17 after having fallen at home and causing a significant contusion and hematoma over and around his left eye and forehead. He had previously been on warfarin for his atrial fibrillation. He was significantly bradycardic with up to a 4 second pause in his heart rate. He underwent several CT scans of his head, which did not show any intracranial bleeding. What was seen was progression of his hematoma. His hematoma stabilized once his anticoagulation was held. He was seen by cardiology, who had previously recommended a pacemaker due to his Sick Sinus Syndrome, and he underwent placement of a pacemaker on 07/31/17. He is safe/stable for discharge at this point, but will need to be monitored at home for the next week for concerns of further falls. His anticoagulation will also be held for a week following discharge. Continuation of his anticoagulation will need to be reassessed in 1-2 weeks in order to weight the risks vs benefits, about whether there has been resolution of his lightheadedness/falls, and the status of his hematoma. Discharge discussed with: patient, family, nurse, case management - Time Spent with Patient Total time spent providing and/or coordinating discharge services: Greater than 30 minutes - Discharge Medications Prescriptions: Tobramycin Opth SOLN 1 drop LEFT EYE TID #1 bottle Home Medications: 5-Hydroxytryptophan (5-Htp) [5-Htp] 100 mg PO HS 10/20/15 [History] Aripiprazole [Abilify] 5 mg PO DAILY 10/20/15 [History] Ascorbate Calcium/Bioflavonoid [Dianne-C 500 mg Tablet] 1 each PO DAILY 10/20/15 [History] Atorvastatin Calcium [Lipitor] 20 mg PO DAILY 10/20/15 [History] Cyclobenzaprine [Flexeril] 10 mg PO TID PRN 10/20/15 [History] Doxazosin [Cardura] 8 - 12 mg PO HS 10/20/15 [History] Duloxetine HCl [Cymbalta] 60 mg PO BID 10/20/15 [History] Furosemide [Lasix] 40 mg PO DAILY 10/20/15 [History] Lisinopril [Zestril] 20 mg PO BID 10/20/15 [History] Metoprolol [Lopressor] 100 mg PO BID 10/20/15 [History] Vitamin B Complex 1 each PO DAILY 10/20/15 [History] lamoTRIgine [Lamictal] 200 mg PO BID 10/20/15 [History] Mag Hydrox/Al Hydrox/Simeth [Maalox] 15 ml PO Q6HR PRN #0 udc 10/26/15 [Rx] Ibuprofen [Motrin Ib] 400 mg PO Q4H PRN 07/18/17 [History] Insulin NPH/REG 70/30 [HumuLIN 70/30 VIAL] 50 unit SQ BIDWM 07/18/17 [History] Metformin HCl [Fortamet] 500 mg PO BID 07/18/17 [History] Tobramycin Opth SOLN 1 drop LEFT EYE TID #1 bottle 08/01/17 [Rx] Allergies/Adverse Reactions: 3 Allergy/AdvReac Type Severity Reaction Status Date / Time Hydromorphone [From Dilaudid] AdvReac See Verified 07/27/17 22:33 Comments Date of admission: 07/28/17 02:01 Primary care physician: Mari Johnson MD Consults: 07/28/17 10:34 Consult to Occupational Therapy [CONS] Routine Comment: Evaluate, develop and implement POC Reason for Consult: Weakness multiple falls Does patient have active BEDREST order?: No Is patient medically & hemodynamically stable?: No Patient assessed for mobility or mobilized this visit?: Yes Consult to Physical Therapy [CONS] Routine Comment: Evaluate, develop and implement POC Reason for Consult: Weakness multiple falls Does patient have active BEDREST order?: Yes Is patient medically & hemodynamically stable?: No Patient assessed for mobility or mobilized this visit?: Yes Discharging clinician: Genaro Levy Anticipated date of discharge: 08/01/17 - Constitutional Vitals: Temp Pulse Resp BP Pulse Ox 98.7 F 60 17 103/59 93 08/01/17 07:03 08/01/17 07:03 08/01/17 07:03 08/01/17 07:03 08/01/17 07:03 General appearance: Present: cooperative, A&O X 3, pleasant, no acute distress, obese, answers questions appropriately Exam: General: Cooperative, pleasant, no acute distress, alert and oriented 3, answers questions appropriately HEENT: Normocephalic, bandage in place over left eye, left eye swollen but he can open it today, hematoma on left forehead and under left eye, laceration above left eyebrow, mild tenderness in muscles in posterior cervical region, neck supple, trachea midline, oral mucosa moist, no orophargeal erythema or exudates, swelling and discoloration around his right eye, scleral hemmorhage present in lateral aspect in left eye Respiratory: No accessory muscle usage, clear to auscultation bilaterally, no wheezes/rhonchi/rales appreciated Cardiovascular: Regular rate and rhythm, S1 and S2 present, no murmurs/rubs/ gallops/clicks appreciated GI/abdominal: Nondistended, nontender, soft, normal bowel sounds, no peritoneal signs Extremities: No calf tenderness, abrasions on right and left lower extremities, abrasions on left UE, trace pedal edema appreciated, warm, lower extremity pulses palpable and symmetrical Neurological: Alert and oriented 3, no facial droop, no focal deficits Skin: Dry, intact, normal color - Patient Status Disposition: Home Health Service Condition: Fair Functional capacity at discharge: independent ambulation Overall status at discharge: patient is progressing back to baseline - Discharge Instructions Instructions: Tobramycin (Into the eye), Pacemaker (DC), Fall Prevention (DC) Follow Up With: Mari Johnson MD [Primary Care Provider] - 08/07/17 10:00 am Kaveh Doll MD [Partnered Physician] - 08/09/17 1:30 pm (for wound check Then they will make a [address] Kaveh Doll followup appt, they will call you with appt date & time.) Additional Instructions: ACTIVITY: Moderate activity for the next 7 days. No lifting more than 5 pounds ( gallon of milk) for 4-6 weeks. Avoid lifting your arm on the same side as the device for 4 weeks. BATHING /SHOWERING: Do not remove the large bandage over the site for 2 days. Do not allow the device to get wet for 7-10 days. You may bathe/shower, but do not use soap and water on the site. When bathing, keep the site dry by covering with Saran wrap or a towel. WOUND CARE: The white steri-strips will start to peel away and come off after 14 days, or your doctor will remove them after [address] into or on top of the incision. Do not use cotton swabs. Do not use any antibiotic ointment or Vitamin E on the site. REMINDERS: You may use electrical devices, such as, microwaves, hair dryers, electric razors, electric blankets, etc. as long as they are in good condition and kept 6 -8 inches away from the device. It is recommended to use cell phones on the opposite side of your device. Notify security personnel at the airport that you have a device before you go through airport security screening. When at places with security monitors, such as a grocery store, do not linger near these monitors. It is fine to walk past them in a normal manner. Refer to your owners manual for more specific directions. CARRY YOUR PACEMAKER/ICD CARD WITH YOU AT ALL TIMES Return to work as instructed per physician Resume driving as instructed per physician Keep all scheduled follow up appointments Resume medications as instructed Contact [facility] ( ) if: You develop excessive bleeding from insertion or wound site not controlled by applying pressure You develop a fever greater than 101 degrees Fahrenheit Your incision becomes reddened at or around the site Your incision develops yellowish or greenish drainage or development of white pimple-like bumps You experience excessive pain You develop swelling in your ankles You experience muscle switching You develop excessive hiccupping If you experience chest pain, shortness of breath, dizziness, or extreme tiredness, stop the activity and rest. Please notify [facility] office if you experience any of these symptoms and they are not relieved by rest please call 911! Please return to emergency department if worsening falls, development of chest pain, development palpitations, development of fever/chills, or development of shortness of breath Please take all medications as prescribed: Tobramycin ophthalmic drops in left eye 3-4 times a day until better able to clear secretions Stop warfarin until reassessed by cardiology and/or your PCP Stop hydrochlorothiazide until readdressed and reevaluated by your PCP/ cardiology Please follow-up with cardiology in 1-2 weeks Please follow-up with her PCP in 1-2 weeks Please follow-up with your regroover within one week - Diet and Activity Activity: as per physical therapy, increase activity as tolerated Diet: diabetic diet - VTE Reasons for not Prescribing Prophylaxis: Not indicated-Anticoagulated or INR therapeutic Documentation of Mechanical Device: Intermittent pneumatic compression device <Miguel Irby - Last Filed: 08/01/17 14:10> Date of Encounter: 08/01/17 - Discharge Diagnosis (1) Sick sinus syndrome Status: Acute (2) Hypertension Status: Chronic Qualifiers: Hypertension type: essential hypertension Qualified Code(s): I10 - Essential (primary) hypertension (3) Fall Status: Acute Qualifiers: Encounter type: subsequent encounter Qualified Code(s): W19.XXXD - Unspecified fall, subsequent encounter (4) Traumatic hematoma of head Status: Acute Qualifiers: Encounter type: subsequent encounter Qualified Code(s): S00.93XD - Contusion of unspecified part of head, subsequent encounter (5) IDDM (insulin dependent diabetes mellitus) Status: Chronic (6) DVT prophylaxis Status: Acute (7) Atrial fibrillation Status: Chronic Qualifiers: Atrial fibrillation type: paroxysmal Qualified Code(s): I48.0 - Paroxysmal atrial fibrillation (8) Morbid obesity with BMI of 45.0-49.9, adult Status: Chronic Hospital course: Mr. Hernandez is a 61 year old male - Time Spent with Patient Total time spent providing and/or coordinating discharge services: 39min Date of admission: 07/28/17 02:01 Primary care physician: Mari Johnson MD Consults: 07/28/17 10:34 Consult to Occupational Therapy [CONS] Routine Comment: Evaluate, develop and implement POC Reason for Consult: Weakness multiple falls Does patient have active BEDREST order?: No Is patient medically & hemodynamically stable?: No Patient assessed for mobility or mobilized this visit?: Yes Consult to Physical Therapy [CONS] Routine Comment: Evaluate, develop and implement POC Reason for Consult: Weakness multiple falls Does patient have active BEDREST order?: Yes Is patient medically & hemodynamically stable?: No Patient assessed for mobility or mobilized this visit?: Yes - Constitutional Vitals: Temp Pulse Resp BP Pulse Ox 98.6 F 60 18 130/69 92 08/01/17 10:58 08/01/17 10:58 08/01/17 10:58 08/01/17 10:58 08/01/17 10:58 - Attending Attestation I examined this patient and my medical decision-making was reviewed with the Resident Physician on 08/01/17. I agree with the documented findings, disposition and treatment plan as described except to the extent set forth below. Mr Hernandez has been admitted for recurrent falls and bradycardia. He is s/p PPM. He is now afebrile and ready for discharge home with [facility]. His facial contusions are slowly improving. Exam Alert Comfortable Able to open L eye slightly - subconjunctival hemorrhage present Heart not tachy Lungs no wheeze Plan D/C home with [facility] Hold anticoagulation till next week.
[2017-08-01 11:02] VITALS: BP 130/69
== END 2017-08-01 15:12 | disposition home health service (06) | DRG 243 ==
LOC: 2NENU 20:03 → EMEROO 20:03 → 2NENU 23:50 → SUATTDRO 07-28 02:01
PROVIDERS: ADMIT Pediatrics; ATTEND Internal Medicine